=== PATIENT | male | born 1935 | race Caucasian/White ===

== ENCOUNTER → 2017-12-11 15:18 | Outpatient (CLI) | payer MEDICARE, OTHER, SELFPAY ==
[2017-12-11 16:57] LABS: AST(SGOT) 14 U/L (15-37); Alanine Aminotransfer ALT/SGPT 17 U/L (16-61); Albumin, Serum 3.9 g/dL (3.2-5.0); Alkaline Phosphatase 68 U/L (45-117); Bilirubin, Direct 0.13 mg/dL (0.00-0.30); Cholesterol 187 mg/dL (200); Globulin 3.4 g/dL (2.2-4.2); High Density Lipoprotein 36 mg/dL; Protein, Total 7.3 g/dL (6.4-8.2); Triglycerides 73 mg/dL; Very Low Density Lipoprotein 15 mg/dL (5-40)
== END ==
PROVIDERS: Family Provider Family Medicine; PCP Family Medicine; Visit Provider Physician Assistant Medical
DX: I10 Essential (primary) hypertension (principal); E78.5 Hyperlipidemia, unspecified; I25.10 Atherosclerotic heart disease of native coronary artery without angina pectoris
CPT/HCPCS: 36415; 80061; 80076

== ENCOUNTER → 2018-01-07 16:21 | Outpatient (CLI) | payer MEDICARE, OTHER, SELFPAY ==
--- NOTE | 2018-01-07 | LES_PTH ---
PATIENT: ELKIN HOUSE LOC: [facility] U#:[id number] AGE/SX: 89/M ROOM: RE01/07/[address]: Dr. Andre Mckeon MD : 1935 BED: DIS: SPEC #: [id number] RECD: 01/08/18 08:33 STATUS: SHANIQUE DEION #: [id number] KRAIG: 01/07/18 00:[address]: Andre Mckeon DEPT: SURGICAL PATHOLOGY RECD BY: Tomas Toussaint ENTERED: 01/08/18 08:33 SP TYPE: Lesion OTHR DR: Dr. Lui Sellers MD Tissues: Skin of forearm, NOS Procedures: Surgery Specimen Level IV HEADER OPERATION: Excision skin lesion left forearm PRE-OP DIAGNOSIS: Neoplasm of uncertain behavior of skin of forearm TISSUE SUBMITTED: Skin lesion left forearm MICROSCOPIC DIAGNOSIS Skin lesion left forearm, excision: Squamous cell carcinoma in situ. Detached fragment of superficial skin with ulceration and associated acute inflammation. See comment. SJ:dinh 01/12/18 COMMENT The margins cannot be evaluated definitely due to the fragmented nature of the specimen, however, grossly indentified piece as skin ellipse, inked resection margins are free of squamous carcinoma in situ. Clinical correlation and appropriate follow up are necessary. Case has been reviewed in consultation with Dr. Galloway who concurs with the above diagnosis. IDC:AM MICROSCOPIC DESCRIPTION Slides are reviewed. GROSS DESCRIPTION Received in fixative is one container labeled with the patient's name and designated left forearm. The specimen consists of an ellipse of light patterson excised skin measuring 1.5 x 1 x 0.5 cm. Also present free in the container is an irregular fragment of patterson tissue measuring 1 x 0.7 x 0.1 cm. This free flowing fragment may represent part of dislodged superficial skin. The skin fragment is inked, serially sectioned and totally submitted along with the presumed disarticulated superficial skin fragment in one cassette. / AM:dinh 01/08/18 TC:0 CPT: 21043
== END ==
PROVIDERS: Family Provider Family Medicine; PCP Family Medicine; Visit Provider Surgery
DX: D04.62 Carcinoma in situ of skin of left upper limb, including shoulder (principal)
CPT/HCPCS: 88305

== ENCOUNTER → 2018-02-18 09:42 | Outpatient (CLI) | payer MEDICARE, OTHER, SELFPAY ==
--- NOTE | 2018-02-18 09:44 | RAD_ITS ---
PROCEDURE: Air-contrast upper GI series. REASON FOR EXAM: Male, 83 years old. 10 pound weight loss in last 3 weeks. Difficulty eating food without washing food down. Patient complains of pain near sternum after eating. TECHNIQUE: After the administration of gas producing crystals, water and barium solution orally, multiple images of the opacified gastrointestinal tract were obtained under fluoroscopic guidance. FLUOROSCOPY TIME (if supplied): (1:07) minutes/seconds COMPARISON: None available. FINDINGS: After the administration of gas producing crystals, water and barium solution orally, multiple images of the opacified gastrointestinal tract were obtained under fluoroscopic guidance in the upright and prone DAY positions. Examination of the esophagus is abnormal with moderate thoracic upper and mid esophageal dilatation seen. Fairly severe dilatation distal esophagus is noted with irregular margins near the GE junction showing numerous filling defects, cannot exclude retained foodstuff and/or masses concerning for neoplasm with more distal esophageal GE junction narrowing noted. One of the filling defects is oval and is approximately 0.9 x 0.5 cm with image RF #1-7. Marked narrowing is seen of the distal esophagus at the GE junction with prone DAY imaging with small sliding-type hiatal hernia associated. Severe esophageal dysmotility is noted with tertiary waves suggested with delayed after imaging. Later delayed imaging shows retained barium within the thoracic upper and mid esophagus with lobulated appearing smooth right lateral margin adjacent. Delayed images also show filling defect within the distal esophagus with irregular margins concerning for neoplasm. Examination the stomach suggests thickened rugae although evaluation is difficult as stomach is not completely distended. Sternal wires and cardiac stents are seen. Severe aortic knob calcification. IMPRESSION: Abnormal esophagus as described with distal esophageal high grade obstruction with numerous intraluminal filling defects concerning for neoplasm and/or retained foodstuff. Distal esophageal narrowing with likely stricture noted near the GE junction, cannot exclude extrinsic constricting annular lesion. Recommend CT chest and abdomen with IV contrast without GI contrast for further evaluation or PET/CT scan as clinically indicated.. No aspiration identified during study. No significant GE reflux noted. Thickened gastric rugae suggested, may represent gastritis or other etiology. Clinical correlation recommended. Small sliding-type hiatal hernia noted. Sternal wires and cardiac stents. Severe aortic knob calcifications of arteriosclerosis. Results communicated via telephone from Dr. Cee to the Attending Physician's nurse Tonja 02/18/2018 at approximately 1232 hours. Electronically Signed: Kristopher Cee, at 12:44 EDT Tel , Service support , RAD/Esophagus Only
== END ==
PROVIDERS: Family Provider Family Medicine; PCP Family Medicine; Referring Provider Otolaryngology; Visit Provider Otolaryngology
DX: R13.10 Dysphagia, unspecified (principal)
CPT/HCPCS: 74220

== ENCOUNTER 2018-02-19 06:27 | Day surgery (SDC) | payer MEDICARE, OTHER, SELFPAY ==
--- NOTE | 2018-02-19 | IMM_PTH ---
PATIENT: ELKIN HOUSE LOC: [place] U#:[id number] AGE/SX: 83/M ROOM: RE02/19/[address]: Dr. Andre Mckeon MD : 1935 BED: DIS: 02/19/2018 SPEC #: [id number] RECD: 03/05/18 10:39 STATUS: SHANIQUE REQ #: [id number] KRAIG: 02/19/18 00:[address]: Kiera Hicks DEPT: IMMUNOHISTOCHEMISTRY RECD BY: Vanessa Soriano ENTERED: 03/05/18 10:40 SP TYPE: IMMUNO OTHR DR: MD Dr. Lui Thakkar MD Tissues: Esophagus, NOS Procedures: HER-2-DIRK (initial) Comments: @ Ordering doctor for HER2 edited from to @ by RGOOD at 03/05/18 1055 @ Submitting doctor edited from to @ by RGOOD at 03/05/18 1053 PHYSICIAN & [place] [phone] SPECIMEN INFORMATION: Tissue Source: Esophageal mass, biopsy Clinical Info: Esophageal mass Specimen Number: [id number] CPT code: 00773 METHODOLOGY: Deparaffinized sections of prefer/formalin-fixed tissue or PAP/DQ stained slides are incubated with monoclonal/polyclonal antibodies/oligonucleotide probes. Localization is made via biotin free immunoperoxidase method. Appropriate controls are performed and reacted as expected. Results on target cell population are indicated in the following table: RESULTS: ANTIBODY / CLONE RESULT Her-2neu (CB11) 0 (negative) The test for HER 2 is performed on formalin-fixed paraffin embedded tissue using the CB11 mouse monoclonal antibody ([employer]). A 3+ staining pattern is interpreted as positive and is defined as a strong membranous staining involving the entire cell membrane in over 30% of invasive tumor cells. A similar weak staining pattern (2+) involving 10% of the tumor cells is interpreted as equivocal. HER 2 follow-up testing by FISH is recommended for all equivocal results. Reference: [place] Society of Clinical Oncology and the College of [employer] Pathology (J. Clin. Oncol. 23: 118-145, 2007). Fixative Used: Formalin; Duration of Fixation: __ Hrs; Sample Adequate: Yes These tests were developed and their performance characteristics determined by [facility]. They may not have been cleared or approved by the U.S. Food and Drug Administration. The FDA has determined that such clearance or approval is not necessary. INTERPRETATION: Esophageal mass, biopsy: Invasive adenocarcinoma. SJ:dinh 03/08/18
--- NOTE | 2018-02-19 | EGD_PTH ---
PATIENT: ELKIN HOUSE LOC: EN U#:[id number] AGE/SX: 83/M ROOM: RE02/19/[address]: Dr. Andre Mckeon MD : 1935 BED: DIS: 02/19/2018 SPEC #: [id number] RECD: 02/19/18 12:13 STATUS: SHANIQUE DEION #: [id number] KRAIG: 02/19/18 00:[address]: Andre Mckeon DEPT: SURGICAL PATHOLOGY RECD BY: Tomas Toussaint ENTERED: 02/19/18 12:13 SP TYPE: EGD BIOPSY HARVEY DR: Dr. Lui Sellers MD Tissues: Esophageal mucous membrane Procedures: Surgery Specimen Level IV HEADER OPERATION: EGD ([facility] [place]) PRE-OP DIAGNOSIS: Esophageal mass TISSUE SUBMITTED: Esophageal mass biopsy MICROSCOPIC DIAGNOSIS Esophageal mass, biopsy: Invasive adenocarcinoma. See comment. ALISSON:dinh 02/22/18 COMMENT This case is discussed with Dr. Hicks on 02/22/18. Please notify the laboratory if immunohistochemistry for mismatch repair protein &/or Her-2neu is needed. Case has been reviewed in consultation with Dr. Galloway who concurs with the above diagnosis. IDC:AM MICROSCOPIC DESCRIPTION Slides are reviewed. GROSS DESCRIPTION Received in fixative is one container labeled with the patient's name and designated esophageal mass biopsy. The specimen consists of multiple irregular fragments of light patterson soft tissue that in aggregate measure 0.5 x 0.5 x 0.1 cm. The specimen is totally submitted in one cassette. / SJ:rg 02/19/18 TC:0 CPT: 85754
[2018-02-19 06:46] VITALS: BP 187/83; PULSE 57; RESP 16; TEMP 36.6; O2SAT 100; BMI 24.6
[2018-02-19 07:06] LABS: Bedside Glucose 127 mg/dL (70-110)
[2018-02-19 07:45] VITALS: BP 175/78; BP 187/83; PULSE 59; RESP 16; TEMP 36.5; O2SAT 100
--- NOTE | 2018-02-19 07:47 | OP.ENDO_ITS ---
Patient Name: Ad Mayfield Procedure Date: 02/19/2018 7:21 AM Date of : 1935 Age: 83 Procedure: Upper GI endoscopy Indications: Abnormal UGI series Providers: Andre Mckeon MD Medicines: See the Anesthesia note for documentation of the administered medications Complications: No immediate complications. Estimated blood loss: Minimal. Procedure: Pre-Anesthesia Assessment: - Prior to the procedure, a History and Physical was performed, and patient medications and allergies were reviewed. The patient's tolerance of previous anesthesia was also reviewed. The risks and benefits of the procedure and the sedation options and risks were discussed with the patient. All questions were answered, and informed consent was obtained. Prior Anticoagulants: The patient has taken Plavix (clopidogrel), last dose was day of procedure. ASA Grade Assessment: III - A patient with severe systemic disease. After reviewing the risks and benefits, the patient was deemed in satisfactory condition to undergo the procedure. After obtaining informed consent, the endoscope was passed under direct vision. Throughout the procedure, the patient's blood pressure, pulse, and oxygen saturations were monitored continuously. The gastroscope was introduced through the mouth, and advanced to the second part of duodenum. The upper GI endoscopy was accomplished without difficulty. The patient tolerated the procedure well. Scope In: 7:33:46 AM Scope Out: 7:38:41 AM Total Procedure Duration Time 0 hours 4 minutes 55 seconds Findings: A large, fungating mass with bleeding and stigmata of recent bleeding was found in the lower third of the esophagus, 35 cm from the incisors. The mass was partially obstructing and partially circumferential (involving one-third of the lumen circumference). Biopsies were taken with a cold forceps for histology. A small hiatal hernia was present. The ampulla and duodenal bulb were normal. No biopsies or other specimens were collected for this exam. Impression: - Partially obstructing, malignant esophageal tumor was found in the lower third of the esophagus. Biopsied. - Small hiatal hernia. - Normal ampulla and duodenal bulb. No specimens collected. Recommendation: - Discharge patient to home. - Full liquid diet indefinitely. - Continue present medications. - Await pathology results. - Repeat upper endoscopy (date not yet determined) for surveillance based on pathology results. - Return to my office in 1 week. Procedure Code(s): --- Professional --- 88453, Esophagogastroduodenoscopy, flexible, transoral; with biopsy, single or multiple Diagnosis Code(s): --- Professional --- C15.5, Malignant neoplasm of lower third of esophagus K44.9, Diaphragmatic hernia without obstruction or gangrene R93.3, Abnormal findings on diagnostic imaging of other parts of digestive tract CPT copyright 2017 [employer]. All rights reserved. The codes documented in this report are preliminary and upon medical record coder review may be revised to meet current compliance requirements. MD Andre Klein MD 02/19/2018 7:46:26 AM This report has been signed electronically. Number of Addenda: 0 Note Initiated On: 02/19/2018 7:21 AM
[2018-02-19 07:50] VITALS: BP 182/86; BP 187/83; PULSE 59; RESP 18; O2SAT 96
[2018-02-19 07:55] VITALS: BP 187/83; BP 190/99; PULSE 58; RESP 18; O2SAT 93
[2018-02-19 08:00] VITALS: BP 161/93; BP 187/83; PULSE 60; RESP 16; TEMP 36.3; O2SAT 100
[2018-02-19 08:25] VITALS: BP 187/83
== END 2018-02-19 08:34 | disposition home or self-care (01) ==
LOC: EN 06:28 → AC 06:40
PROVIDERS: Family Provider Family Medicine; PCP Family Medicine; Referring Provider Surgery; Visit Provider Surgery
PROC: 0DJ08ZZ Inspection of Upper Intestinal Tract, Via Natural or Artificial Opening Endoscopic (ICD-10-PCS; CPT 43235; principal; 2018-02-19 07:25)
DX: C15.5 Malignant neoplasm of lower third of esophagus (principal); K44.9 Diaphragmatic hernia without obstruction or gangrene; R93.3 Abnormal findings on diagnostic imaging of other parts of digestive tract; I25.10 Atherosclerotic heart disease of native coronary artery without angina pectoris; I10 Essential (primary) hypertension; E11.9 Type 2 diabetes mellitus without complications; E78.5 Hyperlipidemia, unspecified; I25.2 Old myocardial infarction
CPT/HCPCS: 43239; 82962; 88305; 88342; J7120

== ENCOUNTER 2018-03-09 08:36 | Outpatient (RCR) | payer MEDICARE, OTHER, SELFPAY ==
[2018-02-25 13:08] VITALS: BMI 24.1
== END 2018-03-10 23:59 ==
LOC: NS 08:36
PROVIDERS: Family Provider Family Medicine; PCP Family Medicine; Referring Provider Internal Medicine Hematology & Oncology; Visit Provider Internal Medicine Hematology & Oncology
DX: C15.9 Malignant neoplasm of esophagus, unspecified (principal); R63.4 Abnormal weight loss; Z71.3 Dietary counseling and surveillance
CPT/HCPCS: 97802

== ENCOUNTER → 2018-03-10 08:48 | Outpatient (CLI) | payer MEDICARE, OTHER, SELFPAY ==
[2018-02-25 13:08] VITALS: BMI 24.1
[2018-03-10] VITALS (10 sets, daily range): BP systolic 138–170; BP diastolic 55–82; PULSE 66–73; RESP 12–18; TEMP 36.8; O2SAT 94–99; BMI 22.9
--- NOTE | 2018-03-10 | ASPIGT_PTH ---
PATIENT: ELKIN HOUSE LOC: [place] U#:[id number] AGE/SX: 89/M ROOM: RE03/10/[address]: Dr. Kiera Hicks MD : 1935 BED: DIS: SPEC #: [id number] RECD: 03/10/18 11:42 STATUS: SHANIQUE RENilam #: [id number] KRIAG: 03/10/18 00:[address]: Kiera Hicks DEPT: SURGICAL PATHOLOGY RECD BY: Alexander Cabral ENTERED: 03/10/18 11:43 SP TYPE: ASP RAD OTHR DR: Dr. Lui Sellers MD Tissues: Right lung, NOS Procedures: FNA Specimen Adequacy Special Stain Group II Surgery Specimen Level IV Diff Quik Stain (control) Imprint (control) Cytology Other HEADER OPERATION: CT guided lung biopsy PRE-OP DIAGNOSIS: Right lung lesion TISSUE SUBMITTED: Right lung lesion, CT guided core biopsy MICROSCOPIC DIAGNOSIS Right lung lesion, CT-guided needle core biopsy: Benign lung parenchyma. Focal organizing hemorrhage. No evidence of malignancy. AM:dinh 03/11/18 COMMENT The specimen is evaluated at the time of CT by Dr. Rutledge. Immediate Evaluation = Negative for malignant cells. Reference is made to the patient's esophageal mass biopsy from 02/19/18 ([id number]) in which invasive adenocarcinoma was identified. Case has been reviewed in consultation with Dr. Rutledge who concurs with the above diagnosis. IDC:ALISSON MICROSCOPIC DESCRIPTION Slides are reviewed. GROSS DESCRIPTION Received in fixative is one container labeled with the patient's name and designated right lung lesion, CT-guided core biopsy. The specimen consists of multiple elongated fragments of patterson soft tissue that in aggregate measure 1 x <0.1 x <0.1 cm. The specimen is totally submitted in one cassette. Two touch imprints are prepared at the time of core biopsy. / ALISSON:dinh 03/10/18 TC:5 CPT: 11423, 22484, 93350
--- NOTE | 2018-03-10 | ASPIGT_PTH ---
PATIENT: ELKIN HOUSE LOC: [place] U#:[id number] AGE/SX: 89/M ROOM: RE03/10/[address]: Dr. Kiera Hicks MD : 1935 BED: DIS: SPEC #: [id number] RECD: 03/10/18 11:42 STATUS: SHANIQUE RENilam #: [id number] KRAIG: 03/10/18 00:[address]: Kiera Hicks DEPT: SURGICAL PATHOLOGY RECD BY: Alexander Cabral ENTERED: 03/10/18 11:43 SP TYPE: ASP RAD OTHR DR: Dr. Lui Sellers MD Tissues: Right lung, NOS Procedures: FNA Specimen Adequacy Special Stain Group II Surgery Specimen Level IV Diff Quik Stain (control) Imprint (control) Cytology Other HEADER OPERATION: CT guided lung biopsy PRE-OP DIAGNOSIS: Right lung lesion TISSUE SUBMITTED: Right lung lesion, CT guided core biopsy MICROSCOPIC DIAGNOSIS Right lung lesion, CT-guided needle core biopsy: Benign breast parenchyma. Focal organizing hemorrhage. No evidence of malignancy. AM:dinh 03/11/18 COMMENT The specimen is evaluated at the time of CT by Dr. Rutledge. Immediate Evaluation = Negative for malignant cells. Reference is made to the patient's esophageal mass biopsy from 02/19/18 ([id number]) in which invasive adenocarcinoma was identified. Case has been reviewed in consultation with Dr. Rutledge who concurs with the above diagnosis. IDC:ALISSON MICROSCOPIC DESCRIPTION Slides are reviewed. GROSS DESCRIPTION Received in fixative is one container labeled with the patient's name and designated right lung lesion, CT-guided core biopsy. The specimen consists of multiple elongated fragments of patterson soft tissue that in aggregate measure 1 x <0.1 x <0.1 cm. The specimen is totally submitted in one cassette. Two touch imprints are prepared at the time of core biopsy. / ALISSON:dinh 03/10/18 TC:5 CPT: 54479, 04854, 47647
--- NOTE | 2018-03-10 08:50 | CT_ITS ---
PROCEDURE: CT GUIDED CORE NEEDLE BIOPSY OF A right middle lobe LUNG LESION INDICATION: Male, 83 years old. Ill-defined densities in the right middle lobe. Positive PET scan. PHYSICIAN: Dr. Tong CONSENT: Written informed consent was obtained having explained the risks, benefits and alternatives in detail with the patient who accepted the risks and agreed to proceed. Laboratory review and clinical assessment was performed. CONSCIOUS SEDATION PROTOCOL: The Drugs used were: 2 mg Versed, IV., and 50 mcg Fentanyl, IV. The sedation time was: 23 minutes. Conscious sedation was started at 10:00 AM and terminated at 10:23 AM. The conscious sedation protocol was independently monitored. RADIATION DOSAGE (If Supplied By Facility): CTDIvol = ( 19.7 ) mGy, DLP = ( 1282.79 ) mGycm Individualized dose optimization techniques were used for this CT. TECHNIQUE: The patient was placed in the left side down decubitus position. A noncontrast CT was performed to localize the lesion in the right middle lobe . The skin surface was prepped and draped in a sterile fashion. 1% lidocaine was used for local anesthesia. Using CT guidance, a 20-gauge coaxial biopsy device was advanced to the periphery of the lesion. A total of 4 core specimens were obtained. The specimens were placed in a formalin solution. A post procedure CT demonstrated no adverse sequelae or pneumothorax. The patient tolerated the procedure well without adverse event. A negative biopsy does not exclude malignancy. Further imaging or clinical followup based on patient condition and degree of clinical suspicion for malignancy. Suggest rebiopsy, if biopsy results do not match with clinical scenario. CT/Biopsy/Inj or Needle Placement IMPRESSION: 1. CT directed core needle biopsy of the right middle lobe using CT image guidance with image documentation as described. Pathology results are pending. 2. Conscious Sedation protocol utilized with independent monitoring. Electronically Signed: Juan Carlos Tong MD at 12:28 EDT Tel [phone], Service support ,
[2018-03-10] MEDS: fentaNYL 100 MCG/2 ML Ampul IV (09:59)
[2018-03-10] MEDS: Midazolam 2 MG/2 ML Syringe IV (10:00)
--- NOTE | 2018-03-10 10:35 | RAD_ITS ---
STUDY: X-RAY CHEST REASON FOR EXAM: Male, 83 years old. Status post right lung biopsy. TECHNIQUE: AP inspiration and expiration views COMPARISON: Comparison is made with prior examination dated July 07, 2014. FINDINGS: This is an immediate post right lung biopsy radiograph. There is an approximately 10% right pneumothorax. The patient is asymptomatic at this time. A repeat examination is scheduled in 2 hours. RAD/Chest Insp/Exp 2 View IMPRESSION: Approximately 10% right pneumothorax following a right lung biopsy. Electronically Signed: Juan Carlos Tong MD at 10:12 EDT Tel [phone], Service support ,
--- NOTE | 2018-03-10 12:30 | RAD_ITS ---
STUDY: X-RAY CHEST REASON FOR EXAM: Male, 83 years old. Status post right lung biopsy. TECHNIQUE: PA inspiration expiration views. COMPARISON: Comparison is made with prior examination done earlier in the day. FINDINGS: This is a 2 hour delayed image following a right lung biopsy. Stable right pneumothorax. The patient is asymptomatic. The patient will be followed with appropriate instructions. RAD/Chest Insp/Exp 2 View IMPRESSION: Stable right-sided pneumothorax on the 2 hour delayed post right lung biopsy radiograph. Electronically Signed: Juan Carlos Tong MD at 12:30 EDT Tel [phone], Service support ,
== END ==
PROVIDERS: Family Provider Family Medicine; PCP Family Medicine; Referring Provider Internal Medicine Hematology & Oncology; Visit Provider Internal Medicine Hematology & Oncology
DX: R91.8 Other nonspecific abnormal finding of lung field (principal); C15.9 Malignant neoplasm of esophagus, unspecified
CPT/HCPCS: 32405; 71046; 77012; 88161; 88172; 88305; 88307; 88313; 99156; 99157; J7040; A4216

== ENCOUNTER 2018-03-11 09:15 | Day surgery (SDC) | payer MEDICARE, OTHER, SELFPAY ==
[2018-02-25 13:08] VITALS: BMI 24.1
[2018-03-11] VITALS (7 sets, daily range): BP systolic 130–167; BP diastolic 74–83; PULSE 67–77; RESP 13–18; TEMP 36.3–36.6; O2SAT 94–100; BMI 23.6
--- NOTE | 2018-03-11 09:51 | OP.PCM_ITS ---
Problem List (1) Esophagus cancer Status: Acute Qualifiers: Malignant neoplasm of esophagus location: lower third Report of Operation Date of Procedure: 03/11/18 Pre-Operative Diagnosis: Z45.2 adjustment and management vascular fitting Post-Operative Diagnosis: Same Surgery/Procedure Performed:: 1. Right IJ PowerPort placement Type of Anesthesia:: MAC and Topical Anesth Anesthesiologist: Ozzie Gabriel Estimated Blood Loss (mL): < 25 cc Description of Procedure: Patient was brought into the operating room placed in the supine position. Patient was placed in the headdown the right neck was ultrasound properly marked then sterilely prepped and draped in the usual fashion. Local was injected into the neck Seldinger's technique was used to gain access into the right internal jugular vein on the first stick. Guidewire was placed through the needle the needle was removed and fluoroscopy was used to confirm proper placement of the wire. Local was injected onto the chest. An incision was made and electrocautery was used to create a pocket for the port. Incision was made in the neck on the guidewire dilator and sheath were placed over the guidewire dilator and guidewire removed. Single lumen catheter was placed through the sheath. Fluoroscopy was used to confirm proper length to the catheter. The catheter then was tunneled over the collarbone down into the pocket created on the chest. It was cut to length. A locking hub was placed on it. A port was placed on it and the tube was secured with a locking hub. It flushed and irrigated well and was flushed with 5 cc of hep flush. It was sutured into the pocket created with 2 sutures of 2-0 Prolene. Skin incisions were brought together with deep dermal stitches of 3-0 Vicryl and running 4-0 Monocryl. Dermabond was applied sterile dressings were applied and the patient tolerated the procedure well. Patient had undergone a previous right lung biopsy and my postoperative chest x- ray did show a small pneumothorax which I know was not related to the placement of the port. He was breathing appropriately and I felt that he was stable to go home. The catheter was in good placement. - Admit VTE Documentation VTE Present on Admission: No VTE Mechan Device Prophylaxis: SCD's VTE Pharm Prophylaxis ordered?: No Reason prophylaxis not ordered:: Treatment Not Indicated
--- NOTE | 2018-03-11 09:54 | DCINST_ITS ---
Discharge Diet: No Restrictions - Pain medication may cause nausea. You should typically eat light foods as you take your pain medication. Discharge Activity: May Shower - with the bandage in place 1-2 days after surgery. DO NOT SHOWER WHEN YOUR PORT IS ACCESSED. Additional Activity Instructions:: May not drive, work with heavy equipment, or sign legal documents for [address] if you are no longer taking narcotic pain medications. You may drive when you are no longer taking pain medications. Additional Dressing/Incision Instructions:: Leave the bandage on for 2-3 days. When you remove the bandage, leave the steri-strips intact until they fall off. Allergies/Adverse Reactions: Allergies simvastatin Allergy (Severe, Verified 03/08/18 08:55) Unknown muscle weakness atorvastatin [From Lipitor] Allergy (Intermediate, Verified 03/08/18 08:55) Unknown gabapentin [From Neurontin] Allergy (Verified 03/08/18 08:55) Other affected memory Medications to take at Discharge Aspirin [Aspirin, Baby] 81 mg PO DAILY@0800 07/07/14 Atenolol [Tenormin (beta josefina)] 50 mg PO DAILY 07/07/14 clopidogrel 75 mg tablet 75 mg PO DAILY #90 tab 04/21/17 metformin ER 500 mg tablet,extended release 24 hr 1,000 mg PO DAILY tab 12/10/17 nitroglycerin 0.4 mg sublingual tablet 0.4 mg SUBLINGUAL Q5-15M PRN 12/10/17 temazepam 15 mg capsule 15 mg PO QHS PRN 12/10/17 Enalapril Maleate [Vasotec] 20 mg PO DAILY 02/18/18 Melatonin 10 mg PO QHS PRN 02/22/18 Dulaglutide [Trulicity] 0.75 mg SQ SA 03/04/18 Ranitidine [Zantac] 150 mg PO DAILY PRN 03/08/18 Oxycodone HCl/Acetaminophen [Percocet 5/325] 1 - 2 tab PO Q4H PRN PRN 5 Days #30 tab 03/11/18 The following prescriptions were given: Oxycodone HCl/Acetaminophen [Percocet 5/325] 1 - 2 tab PO Q4H PRN PRN 5 Days #30 tab PRN Reason: Pain Primary Care Physician: Lui Sellers MD [Primary Care Provider] - Test Results: Test results from this visit will be discussed in further detail at your follow- up appointment, if applicable. Please Follow Up With: Andre Mckeon MD - [phone] When: Please plan to follow up in 7 days in the office.
[2018-03-11 10:06] LABS: Bedside Glucose 178 mg/dL (70-110)
[2018-03-11] MEDS: Bupivacaine Mpf 0.5% 30 ML VIAL (10:17)
--- NOTE | 2018-03-11 10:44 | OP.ENDO_ITS ---
Patient Name: Ad Mayfield Procedure Date: 03/11/2018 9:58 AM Date of : 1935 Age: 83 Procedure: Upper GI endoscopy Indications: Malignant esophageal adenocarcinoma Providers: Andre Mckeon MD Referring MD: Andre Mckeon MD Medicines: See the Anesthesia note for documentation of the administered medications Patient Profile: This is an 83 year old male. Refer to note in patient chart for documentation of history and physical. He is status post EGD for biopsy within the past month. Complications: No immediate complications. Procedure: Pre-Anesthesia Assessment: - Prior to the procedure, a History and Physical was performed, and patient medications and allergies were reviewed. The patient's tolerance of previous anesthesia was also reviewed. The risks and benefits of the procedure and the sedation options and risks were discussed with the patient. All questions were answered, and informed consent was obtained. Prior Anticoagulants: The patient has taken aspirin, last dose was day of procedure. ASA Grade Assessment: III - A patient with severe systemic disease. After reviewing the risks and benefits, the patient was deemed in satisfactory condition to undergo the procedure. After obtaining informed consent, the endoscope was passed under direct vision. Throughout the procedure, the patient's blood pressure, pulse, and oxygen saturations were monitored continuously. The gastroscope was introduced through the mouth, and advanced to the duodenal bulb. The upper GI endoscopy was accomplished without difficulty. The patient tolerated the procedure well. Scope In: 10:27:34 AM Scope Out: 10:34:02 AM Total Procedure Duration Time 0 hours 6 minutes 28 seconds Findings: The patient was placed in the supine position for PEG placement. The stomach was insufflated to appose gastric and abdominal rios. A site was located in the antrum of the stomach with excellent transillumination for placement. The abdominal wall was marked and prepped in a sterile manner. The area was anesthetized with 5 mL of 1% lidocaine. The trocar needle was introduced through the abdominal wall and into the stomach under direct endoscopic view. A snare was introduced through the endoscope and opened in the gastric lumen. The guide wire was passed through the trocar and into the open snare. The snare was closed around the guide wire. The endoscope and snare were removed, pulling the wire out through the mouth. A skin incision was made at the site of needle insertion. The 14 Fr Bard gastrostomy tube was lubricated. The G-tube was tied to the guide wire and pulled through the mouth and into the stomach. The trocar needle was removed, and the gastrostomy tube was pulled out from the stomach through the skin. The external bumper was attached to the gastrostomy tube, and the tube was cut to remove the guide wire. The final position of the gastrostomy tube was confirmed by relook endoscopy, and skin marking noted to be 2.5 cm at the external bumper. The final tension and compression of the abdominal wall by the PEG tube and external bumper were checked and revealed that the bumper was loose and lightly touching the skin. The feeding tube was capped, and the tube site cleaned and dressed. A large, fungating mass with no stigmata of recent bleeding was found in the lower third of the esophagus. The mass was partially obstructing. The examined duodenum was normal. Impression: - Partially obstructing esophageal tumor was found in the lower third of the esophagus. - Normal examined duodenum. - A PEG placement was successfully completed. - No specimens collected. Recommendation: - Discharge patient to home. - Resume previous diet. - Continue present medications. - Repeat upper endoscopy in 3 months to assess disease activity. - Return to my office in 1 week. Procedure Code(s): --- Professional --- 95029, Esophagogastroduodenoscopy, flexible, transoral; with directed placement of percutaneous gastrostomy tube Diagnosis Code(s): --- Professional --- D49.0, Neoplasm of unspecified behavior of digestive system C15.9, Malignant neoplasm of esophagus, unspecified CPT copyright 2017 [employer]. All rights reserved. The codes documented in this report are preliminary and upon material requirements worker review may be revised to meet current compliance requirements. MD Andre Klein MD 03/11/2018 10:43:52 AM This report has been signed electronically. Number of Addenda: 0 Note Initiated On: 03/11/2018 9:58 AM
--- NOTE | 2018-03-11 11:52 | RAD_ITS ---
STUDY: X-RAY CHEST REASON FOR EXAM: Male, 83 years old. Post port placement TECHNIQUE: Single AP portable view of the chest. COMPARISON: Chest x-ray yesterday FINDINGS: Placement of right chest wall Mediport with tip in the mid SVC however, there is a small right apical pneumothorax. About 15-20 % of total lung volume. Left lung is clear. Small amount of right midlung airspace disease, likely atelectasis. Remainder is unchanged RAD/CXR for Line Placement IMPRESSION: Recent placement of right chest wall Mediport with tip in the mid SVC. Right apical pneumothorax, roughly 15-20% of total lung volume N.B. : The above information has been verbally conveyed by Morgan Srivastava DO to Ashia Rosas RN, on 03/11/2018 12:19:53 (ET). Electronically Signed: Morgan Srivastava DO at 12:20 EDT Tel , Service support ,
== END 2018-03-11 13:31 | disposition home or self-care (01) ==
LOC: EN 09:16 → AC 09:16
PROVIDERS: Family Provider Family Medicine; PCP Family Medicine; Referring Provider Surgery; Visit Provider Surgery
PROC: (CPT 36561; principal; 2018-03-11 11:00)
PROC: 0DJ08ZZ Inspection of Upper Intestinal Tract, Via Natural or Artificial Opening Endoscopic (ICD-10-PCS; CPT 43235; principal; 2018-03-11 11:55)
DX: Z45.2 Encounter for adjustment and management of vascular access device (principal); C15.5 Malignant neoplasm of lower third of esophagus; I25.10 Atherosclerotic heart disease of native coronary artery without angina pectoris; E11.9 Type 2 diabetes mellitus without complications; I10 Essential (primary) hypertension; E78.5 Hyperlipidemia, unspecified; I25.2 Old myocardial infarction; Z95.1 Presence of aortocoronary bypass graft; K21.9 Gastro-esophageal reflux disease without esophagitis
CPT/HCPCS: 36561; 43246; 71045; 77001; 82962; J7120; C1788

== ENCOUNTER 2018-03-25 11:30 | Outpatient (RCR) | payer MEDICARE, OTHER, SELFPAY ==
[2018-02-25 13:08] VITALS: BMI 24.1
== END 2018-04-09 23:59 ==
LOC: NS 11:30
PROVIDERS: Family Provider Family Medicine; PCP Family Medicine; Referring Provider Internal Medicine Hematology & Oncology; Visit Provider Internal Medicine Hematology & Oncology
DX: R63.4 Abnormal weight loss (principal); Z71.3 Dietary counseling and surveillance
CPT/HCPCS: 97803

== ENCOUNTER 2018-04-01 15:34 | Emergency (ER) | payer MEDICARE, OTHER, SELFPAY ==
[2018-02-25 13:08] VITALS: BMI 24.1
[2018-03-31 13:45] VITALS: BMI 23.7
[2018-04-01 15:35] VITALS: BP 159/83; PULSE 91; RESP 17; TEMP 36.3; O2SAT 99; BMI 23.7
--- NOTE | 2018-04-01 15:53 | ED.VISSUMM ---
- ER Visit Summary Date of Service: 04/01/18 Chief Complaint: Abdominal distention, nausea, constipation no flatus History of Present Illness: The patient is a 83 M who was diagnosed with esophageal cancer and was deemed an operable. He was diagnosed in February 26. He reports a 9 pound weight loss since diagnosis. He states he has not had a bowel movement or passed gas for 4 days. He does report non-productive cough for several months. He denies orthopnea, PND or dyspnea on exertion. He reports decreased urine output with darker urine today. He does report thirsty, dry mouth and lightheadedness. He denies headache, visual, ocular auditory symptoms. He denies trouble with speech or swallowing. He is on pain medicine. He is on a laxative. He is on no bulking agent and diet is low in fiber. Review of systems is otherwise negative. Physical Examination: Vital signs noted. Blood pressure is elevated 150/83. He appears pale. Head is atraumatic normocephalic. Pupils are equal round reactive. Extraocular muscles are intact. Conjunctive are slightly pink. TMs are pearly white with landmarks noted. Nares patent with no drainage. Posterior pharynx without erythema or exudate. Uvula is midline. Tongue and mucosa are dry. There is no dysphonia or dysphasia. Trachea is midline. There is no stridor with auscultation of the neck. Heart is regular without murmur, gallop or rub. S1 and S2 are normal. Lungs are clear to auscultation with good movement of air bilaterally. Abdomen distended slightly tympanitic with abnormal bowel sounds. Feeding tube noted. Rectal exam remarkable for impaction. Skin appears pale. Neuro exam is nonfocal. Test Results: Three-view x-ray of the abdomen reveals no evidence of obstruction. The chest portion reveals port right subclavian. There is no evidence of infiltrate. Cardiac silhouette is normal. Median sternotomy wires noted. Hilum is normal. No abnormality of the osseous structures. The abdominal portion is no ossific gas pattern. A significant amount of stool in the pelvis. White count is 3.1 with 93 segs and an absolute neutrophil count greater than 2700. Blood sugar is elevated at 368. Is slightly elevated. Emergency Department Course and Treatment: With history of prior abdominal surgery no flatus or bowel movement for 4 days with a distended abdomen will obtain x-rays to determine if there is evidence of a partial small bowel obstruction versus mechanical obstruction secondary to fecal impaction. Because patient reports thirst and dry mouth with decreased urine output will obtain electrode panel and he will receive 1 L of normal saline wide open. Since he appears pale will obtain a CBC to assess H&H. Treatment Plan: Patient was digitally disimpacted by me. He received the liter of normal saline and will be discharged with appropriate instructions to prevent this from reoccurring. Disposition: Discharged home in stable improved condition Impression: 1. Mechanical obstruction secondary to fecal impaction 2. Hyperglycemia and type II diabetic, 368 3. Neutropenia and cancer patient 4. Mild dehydration This note was generated with [employer] dictation software. It may contain incorrect words, spelling, and punctuation that were not noted in review of the chart prior to signing ED Disposition - Plan for ED Patient: Disposition: Home or Assisted Living Chief Complaint: Constipation Instructions: ED Constipation Prescriptions: Dicyclomine HCl [Bentyl] 20 mg PO TIDAC #20 capsule Referrals: Lui Sellers MD [Primary Care Provider] - 1 Week if not improving Kiera Hicks MD [STAFF PHYSICIAN] - 10-14 Days if not better Additional Instructions: 1. You need to increase the fiber in your diet 2. Take Metamucil or MiraLAX 3 times a day for the next week, then twice a day thereafter. 3. You need to increase your fluid intake. 4. Your prescriptions were electronically transmitted to [facility] pharmacy
[2018-04-01] MEDS: 0.9% Normal Saline 1,000 ML 1000 ML IV (16:22)
[2018-04-01 16:24] LABS: Absolute Neutrophil Count 2.9 X10^3/uL (2.0-7.7); Basophil# 0.01 X10^3/uL; Basophil% 0.3 % (0-1); Eosinophil# 0.01 X10^3/uL; Eosinophils% 0.3 % (0-5); Hematocrit 35.9 % (40-54); Hemoglobin 12.2 g/dl (13.0-16.5); Lymphocyte % 3.2 % (19-41); Mean Corpuscular Hgb 30.3 pg (27.0-32.0); Mean Corpuscular Volume 89.1 fL (80-94); Mean Platelet Vol. 9.1 fl (6.2-12.0); Monocyte# 0.07 X10^3/uL; Monocyte% 2.3 % (0-10); Neutrophil # 2.89 X10^3/uL (2.7-7.7); Neutrophil % 93.6 % (47-70); Platelet Count 209 K/mm3 (150-450); RBC Distribution Width CV 13.7 % (11.6-14.6); RBC Distribution Width SD 42.5 fl (35.1-43.9); Red Blood Count 4.03 M/mm3 (4.6-6.2); White Blood Count 3.1 K/mm3 (4.4-11.0)
--- NOTE | 2018-04-01 16:25 | RAD_ITS ---
STUDY: X-RAY - ACUTE ABDOMINAL SERIES REASON FOR EXAM: Male, 83 years old. Abdominal discomfort with pain. Patient is being treated for esophageal cancer. TECHNIQUE: Single view of the chest. Supine, and erect view(s) of the abdomen were obtained. COMPARISON: Chest x-ray dated March 11, 2018 FINDINGS: A right internal jugular catheter stable. There is stable hyperexpansion with granulomatous calcification. There is moderate cardiomegaly with sternotomy wires unchanged. Normal mediastinum and marlin. Normal visualized pulmonary arteries. There is atherosclerotic calcification of the aortic arch with tortuosity. There is a non-specific bowel gas pattern with air seen to the level of the rectosigmoid. The soft tissue structures of the abdomen and pelvis are unremarkable. Normal visualized osseous structures. RAD/Acute Abdomen Inc Chest IMPRESSION: No acute pathology of the chest, abdomen or pelvis. Electronically Signed: Jim Espinoza MD at 16:48 EST , Service support ,
[2018-04-01 16:29] LABS: Differential Indicated SCAN CRITERIA MET; POSITIVE COUNT NO; POSITIVE DIFFERENTIAL YES; POSITIVE MORPHOLOGY NO
[2018-04-01 16:33] LABS: Anion Gap 6 (5-15); BUN 23 mg/dL (7-18); BUN/Creat Ratio 26.2 RATIO (10-20); Calcium,Total 8.5 mg/dL (8.5-10.1); Chloride 102 mmol/L (98-107); Creatinine, Serum 0.88 mg/dL (0.70-1.30); EST Glomerular Filtration Rate 88 mL/min (>60); Est Glom Filt Rate - Afr Amer 107 mL/min (>60); Glucose 368 mg/dL (74-106); Potassium 4.5 mmol/L (3.5-5.1); Sodium Level 134 mmol/L (136-145)
[2018-04-01 16:50] LABS: Differential Comment SCANNED
[2018-04-01] MEDS: Dicyclomine 10 MG Capsule 20 MG PO (17:08)
[2018-04-01 18:19] VITALS: BP 141/76; PULSE 80; RESP 16
[2018-04-05 10:57] LABS: Pathologist Review Reviewed
== END 2018-04-01 18:21 | disposition home or self-care (01) ==
PROVIDERS: Emergency Provider Emergency Medicine; Family Provider Family Medicine; PCP Family Medicine
DX: K56.41 Fecal impaction (principal); E11.65 Type 2 diabetes mellitus with hyperglycemia; D70.9 Neutropenia, unspecified; C15.9 Malignant neoplasm of esophagus, unspecified; E86.0 Dehydration; R05 Cough; I10 Essential (primary) hypertension; E78.00 Pure hypercholesterolemia, unspecified; I25.10 Atherosclerotic heart disease of native coronary artery without angina pectoris; Z87.891 Personal history of nicotine dependence
CPT/HCPCS: 36591; 74022; 80048; 85025; 96360; 96361; 99283; J7030; A4216

== ENCOUNTER 2018-04-02 12:19 | Emergency (ER) | payer MEDICARE, OTHER, SELFPAY ==
[2018-02-25 13:08] VITALS: BMI 24.1
[2018-04-02 11:04] VITALS: BMI 23.7
[2018-04-02 12:21] VITALS: BP 167/70; PULSE 96; PULSE 97; RESP 18; TEMP 36.8; O2SAT 96; O2SAT 97; BMI 23.1
--- NOTE | 2018-04-02 12:35 | CT_ITS ---
STUDY: CT ABDOMEN AND PELVIS WITHOUT CONTRAST REASON FOR EXAM: Male, 83 years old. History of esophageal carcinoma. Possible leakage of the PEG tube. Abdominal pain. RADIATION DOSAGE (If Supplied By Facility): CTDIvol = ( 7.84 ) mGy, DLP = ( 407.50 ) mGycm TECHNIQUE: Transaxial images were obtained from the dome of the diaphragm to the symphysis pubis without oral contrast, and without intravenous contrast. Sagittal and coronal images were reconstructed. Individualized dose optimization techniques were used for this CT. COMPARISON: None. FINDINGS: Patchy right lower lobe infiltrate superimposed on the scarring and bronchiectasis in the posterior medial segment of the right lower lung. Coronary artery calcification. Normal liver. There are multiple gallstones. Normal spleen. There is diffuse atrophy of the pancreas. Normal bilateral adrenal glands. Right perinephric stranding. There is a 5.7 cm x 4.4 cm lobulated nodular density with a small layer of calcifications along its dependent portion arising from the lateral aspect of the right kidney. This may represent a septated cyst with milk of calcium within it. Correlation with ultrasound is recommended for further evaluation. There is a 1.4 cm x 1.8 cm low density nodule in the lateral midportion of the right kidney. This most likely represents a small cyst. Mild degree of left perinephric stranding. There is a small hiatal hernia. A PEG tube is seen within the body of the stomach. Normal small intestine. There are multiple colonic diverticula consistent with diverticulosis. The appendix is visualized and appears normal. There is diffuse atherosclerotic calcification of the abdominal aorta and its major visceral branches, without a demonstrated aneurysm. Normal inferior vena cava. Normal retroperitoneum. Normal urinary bladder. There are prostatic calcifications. Normal abdominal wall. There are degenerative changes of the visualized lumbar spine. CT/Abdomen/Pelvis without Cont IMPRESSION: A PEG tube is seen within the body of the stomach. There is no evidence of a leakage at this time. Small hiatal hernia. Multiple gallstones. Densities in the right kidney most likely representing cysts. Correlation with ultrasound is recommended. Findings suggestive of scarring with bronchiectasis in the posterior medial segment of the right lower lobe. Electronically Signed: Juan Carlos Tong MD at 13:41 EST Tel [phone], Service support ,
[2018-04-02 13:14] LABS: Absolute Lymphocyte Count 0.07 X10^3/ul (0.83-4.51); Absolute Neutrophil Count 2.6 X10^3/uL (2.0-7.7); Basophil# 0.03 X10^3/uL; Basophil% 1.1 % (0-1); Hematocrit 32.1 % (40-54); Hemoglobin 10.7 g/dl (13.0-16.5); Lymphocyte # 0.07 X10^3/ul (4.0); Lymphocyte % 2.5 % (19-41); Mean Corp Hgb Conc 33.3 g/gl (32-36); Mean Corpuscular Hgb 29.6 pg (27.0-32.0); Mean Corpuscular Volume 88.9 fL (80-94); Mean Platelet Vol. 9.4 fl (6.2-12.0); Monocyte# 0.06 X10^3/uL; Monocyte% 2.1 % (0-10); Neutrophil # 2.62 X10^3/uL (2.7-7.7); Neutrophil % 93.2 % (47-70); Platelet Count 139 K/mm3 (150-450); RBC Distribution Width CV 13.6 % (11.6-14.6); RBC Distribution Width SD 43.6 fl (35.1-43.9); Red Blood Count 3.61 M/mm3 (4.6-6.2); White Blood Count 2.8 K/mm3 (4.4-11.0)
[2018-04-02 13:17] LABS: ALB/GLOB Ratio 0.9 RATIO (0.9-2.4); AST(SGOT) 13 U/L (15-37); Alanine Aminotransfer ALT/SGPT 17 U/L (16-61); Albumin, Serum 2.8 g/dL (3.2-5.0); Alkaline Phosphatase 54 U/L (45-117); Anion Gap 10 (5-15); BUN 16 mg/dL (7-18); BUN/Creat Ratio 26.1 RATIO (10-20); Calcium,Total 8.1 mg/dL (8.5-10.1); Chloride 103 mmol/L (98-107); Creatinine, Serum 0.61 mg/dL (0.70-1.30); EST Glomerular Filtration Rate 134 mL/min (>60); Est Glom Filt Rate - Afr Amer 162 mL/min (>60); Estimated Creatinine Clearance 65.05 ml/min; Globulin 3.1 g/dL (2.2-4.2); Glucose 240 mg/dL (74-106); Lipase 55 U/L (73-393); Potassium 4.2 mmol/L (3.5-5.1); Protein, Total 5.9 g/dL (6.4-8.2); Sodium Level 136 mmol/L (136-145)
[2018-04-02 13:32] LABS: POSITIVE COUNT NO; POSITIVE MORPHOLOGY NO
[2018-04-02 13:33] LABS: Differential Indicated SCAN CRITERIA MET
[2018-04-02 13:37] LABS: POSITIVE DIFFERENTIAL YES
[2018-04-02 13:39] LABS: Platelet Estimate SLT DEC (ADEQ); Red Cell Morphology NORM C+C NORMAL (NORM C&C)
--- NOTE | 2018-04-02 15:17 | ED.VISSUMM ---
- ER Visit Summary Date of Service: 04/02/18 Chief Complaint: Abdominal pain History of Present Illness: The patient is a 83 M who presents with abdominal pain around his G-tube site for the past for 5 days. Patient states he has been having some drainage around the PEG tube site. Patient denies any nausea or vomiting. Patient denies any diarrhea. Patient states he has the PEG tube for his cancer treatments. Patient denies any fevers or chills. Patient states he is able to take some liquids by mouth. Physical Examination: Vital signs are stable. Patient is afebrile. Patient is in no acute distress. Oral mucosa is pink and moist. Neck is supple. Trachea is midline. Heart was regular rate and rhythm. Lungs are clear and equal bilaterally. Abdomen is soft. Bowel sounds are normal. There is some mild tenderness around the G-tube site. There is some mild erythema and purulent drainage noted. There is no rebound or guarding noted. Cranial nerves II through XII are intact. There are no focal motor or sensory deficits noted. The remaining physical exam is within normal limits. Test Results: CBC showed a white blood cell count of 2.8. Hemoglobin was 10.7. Platelets 139. Glucose was 240. CT scan of the abdomen and pelvis was obtained. There are no masses or deep abscess. Emergency Department Course and Treatment: Patient was given a prescription for Keflex. Patient was instructed to follow-up with his primary care physician in 5-7 days. Patient understood and was agreeable with the plan. All questions were answered. Disposition: Discharge home Impression: Abdominal cellulitis This note was generated with [employer] dictation software. It may contain incorrect words, spelling, and punctuation that were not noted in review of the chart prior to signing ED Disposition - Plan for ED Patient: Disposition: Home or Assisted Living Chief Complaint: Abd Pain Diagnosis: Abdominal wall cellulitis Instructions: ED Infec Skin Cellulitis Prescriptions: Cephalexin Suspension [Keflex Suspension] 500 mg PO [id number] #400 ml Referrals: Lui Sellers MD [Primary Care Provider] -
--- NOTE | 2018-04-02 15:20 | ED.DCSUM_ITS ---
- ER Visit Summary Date of Service: 04/02/18 Chief Complaint: Abdominal pain History of Present Illness: The patient is a 83 M who presents with abdominal pain around his G-tube site for the past for 5 days. Patient states he has been having some drainage around the PEG tube site. Patient denies any nausea or vomiting. Patient denies any diarrhea. Patient states he has the PEG tube for his cancer treatments. Patient denies any fevers or chills. Patient states he is able to take some liquids by mouth. Physical Examination: Vital signs are stable. Patient is afebrile. Patient is in no acute distress. Oral mucosa is pink and moist. Neck is supple. Trachea is midline. Heart was regular rate and rhythm. Lungs are clear and equal bilaterally. Abdomen is soft. Bowel sounds are normal. There is some mild tenderness around the G-tube site. There is some mild erythema and purulent drainage noted. There is no rebound or guarding noted. Cranial nerves II through XII are intact. There are no focal motor or sensory deficits noted. The remaining physical exam is within normal limits. Test Results: CBC showed a white blood cell count of 2.8. Hemoglobin was 10.7. Platelets 139. Glucose was 240. CT scan of the abdomen and pelvis was obta ined. There are no masses or deep abscess. Emergency Department Course and Treatment: Patient was given a prescription for Keflex. Patient was instructed to follow-up with his primary care physician in 5-7 days. Patient understood and was agreeable with the plan. All questions were answered. Disposition: Discharge home Impression: Abdominal cellulitis This note was generated with [employer] dictation software. It may contain incorrect words, spelling, and punctuation that were not noted in review of the chart prior to signing ED Disposition - Plan for ED Patient: Disposition: Home or Assisted Living Chief Complaint: Abd Pain Diagnosis: Abdominal wall cellulitis Instructions: ED Infec Skin Cellulitis Prescriptions: Cephalexin Suspension [Keflex Suspension] 500 mg PO [id number] #400 ml Referrals: Lui Sellers MD [Primary Care Provider] -
[2018-04-02 15:47] VITALS: PULSE 64; RESP 18; O2SAT 99
[2018-04-05 10:54] LABS: Pathologist Review Reviewed
== END 2018-04-02 15:48 | disposition home or self-care (01) ==
PROVIDERS: Emergency Provider Emergency Medicine; Family Provider Family Medicine; PCP Family Medicine
DX: L03.311 Cellulitis of abdominal wall (principal); K44.9 Diaphragmatic hernia without obstruction or gangrene; K80.20 Calculus of gallbladder without cholecystitis without obstruction; Z85.01 Personal history of malignant neoplasm of esophagus; Z93.1 Gastrostomy status; E11.9 Type 2 diabetes mellitus without complications; I25.10 Atherosclerotic heart disease of native coronary artery without angina pectoris; Z95.1 Presence of aortocoronary bypass graft
CPT/HCPCS: 36591; 74176; 80053; 83690; 85025; 87070; 87077; 87186; 87205; 99282; J7030; A4216

== ENCOUNTER 2018-04-03 07:14 | Emergency (ER) | payer MEDICARE, OTHER, SELFPAY ==
[2018-02-25 13:08] VITALS: BMI 24.1
[2018-04-02 12:21] VITALS: BMI 23.1
[2018-04-03 07:15] VITALS: BP 157/86; PULSE 94; RESP 18; TEMP 36.6; O2SAT 95; BMI 23.1
--- NOTE | 2018-04-03 08:04 | ED.DCSUM_ITS ---
- ER Visit Summary Date of Service: 04/03/18 Chief Complaint: Cough History of Present Illness: The patient is a 83 M who had a left sided bloody nose around 11 PM last night. This lasted several minutes and seemed to resolve with direct pressure. A few minutes after that, he coughed up some bright red blood and clots. This seemed to resolve after a coughing episode. This morning, he wiped his nose and noted some blood on the tissue. He denies any trauma or fevers. He thinks this might be related to taking Keflex. He was prescribed Keflex yesterday for a PEG site infection. The patient has a history of esophageal cancer and is on chemotherapy and radiation. He had a PEG tube placed about a month ago. He noted some redness around the site. He took 2 doses of Keflex and is concerned that the Keflex might be causing the bleeding. He never had this reaction to Keflex before, but rather he read the pharmacy paperwork and it said to return for any sign of bleeding. The patient does take aspirin and Plavix, he has a history of coronary disease. No other blood thinners. No trouble breathing. No chest pain. No known liver disease. Physical Examination: Afebrile and vital signs unremarkable. The patient is sitting upright and in no acute distress. He has some dried blood at his bilateral muscles, worse on the left side. His oropharynx is clear. The remainder of his HEENT exam is unremarkable. Neck unremarkable. Airway intact. Lungs clear. Heart regular. Abdomen soft and nontender. PEG tube shows mild surrounding erythema but no other abnormal findings. It is otherwise clean and intact. Skin otherwise normal. Test Results: We will check labs, coags and a chest x-ray. Emergency Department Course and Treatment: Patient was monitored while awaiting results. I have low suspicion that the Keflex is causing his bleeding. It seems that he had a nosebleed and this caused him to cough up some blood from his oropharynx. I have low suspicion for PE, cardiac pathology, or lung pathology. Will check labs and coags as they may be contributing. White count 1.8 and hemoglobin 11.5, both relatively stable. Platelets are normal and slightly increased from yesterday at 159. Glucose 187 and creatinine 0.64. Coags normal. Chest x-ray unremarkable. Patient has no further bleeding, cough, dyspnea, chest pain, or any other issues. He was given nosebleed precautions. Follow-up as an outpatient. Continue Keflex and return for any new or worsening issues. Treatment Plan: As above Disposition: Discharge Impression: 1. Epistaxis 2. Leukopenia 3. Anemia This note was generated with [employer] dictation software. It may contain incorrect words, spelling, and punctuation that were not noted in review of the chart prior to signing ED Disposition - Plan for ED Patient: Chief Complaint: Cough Referrals: Lui Sellers MD [Primary Care Provider] -
[2018-04-03 08:26] LABS: Absolute Lymphocyte Count 0.09 X10^3/ul (0.83-4.51); Absolute Neutrophil Count 1.5 X10^3/uL (2.0-7.7); Basophil# 0.06 X10^3/uL; Basophil% 3.4 % (0-1); Eosinophil# 0.03 X10^3/uL; Eosinophils% 1.7 % (0-5); Hematocrit 33.7 % (40-54); Hemoglobin 11.5 g/dl (13.0-16.5); Lymphocyte # 0.09 X10^3/ul (4.0); Lymphocyte % 5.1 % (19-41); Mean Corp Hgb Conc 34.1 g/gl (32-36); Mean Corpuscular Hgb 30.3 pg (27.0-32.0); Mean Corpuscular Volume 88.9 fL (80-94); Mean Platelet Vol. 8.8 fl (6.2-12.0); Monocyte# 0.05 X10^3/uL; Monocyte% 2.9 % (0-10); Neutrophil # 1.47 X10^3/uL (2.7-7.7); Platelet Count 159 K/mm3 (150-450); RBC Distribution Width CV 13.7 % (11.6-14.6); RBC Distribution Width SD 42.5 fl (35.1-43.9); Red Blood Count 3.79 M/mm3 (4.6-6.2); White Blood Count 1.8 K/mm3 (4.4-11.0)
[2018-04-03 08:27] LABS: Differential Indicated SCAN CRITERIA MET; POSITIVE COUNT YES; POSITIVE DIFFERENTIAL YES; POSITIVE MORPHOLOGY YES
[2018-04-03 08:30] LABS: International Normalized Ratio 1.1; Prothrombin Time (Protime)PT. 14.2 SECONDS (11.7-14.9)
[2018-04-03 08:31] LABS: Partial Thromboplast Time 35.7 Seconds (24.1-36.2)
--- NOTE | 2018-04-03 08:40 | RAD_ITS ---
STUDY: X-RAY CHEST REASON FOR EXAM: Male, 83 years old. Cough and hemoptysis. History of esophageal cancer. TECHNIQUE: PA and lateral views of the chest. COMPARISON: 03/11/2018. FINDINGS: The right-sided Port-A-Cath is in stable position with the tip in the distal superior vena cava. There is hyperinflation of the lungs consistent with chronic obstructive lung disease (COPD). The previously noted left apical pneumothorax has resolved. The infiltrate/atelectasis in the right midlung zone has resolved. Vague nodular densities seen in the right lung base probably due to nipple shadow. There is no demonstrated pleural abnormality. Sternal cerclage wires and vascular clips are present from a prior sternotomy and coronary artery bypass graft procedure (CABG). Normal mediastinum and marlin. Normal visualized pulmonary arteries. There is atherosclerotic calcification of the aortic arch with tortuosity. There are degenerative changes of the visualized thoracic spine. Normal visualized ribs, clavicles, and shoulders. There is no demonstrated abnormality of the visualized soft tissue structures of the upper abdomen. RAD/Chest PA and Lateral IMPRESSION: Resolved right pneumothorax. No new infiltrate is seen. Electronically Signed: Marino Uriostegui MD at 9:05 EST Tel , Service support ,
[2018-04-03 08:43] LABS: Differential Comment SCANNED
[2018-04-03 08:46] LABS: Anion Gap 12 (5-15); BUN 14 mg/dL (7-18); BUN/Creat Ratio 21.9 RATIO (10-20); Calcium,Total 8.6 mg/dL (8.5-10.1); Chloride 103 mmol/L (98-107); Creatinine, Serum 0.64 mg/dL (0.70-1.30); EST Glomerular Filtration Rate 128 mL/min (>60); Est Glom Filt Rate - Afr Amer 154 mL/min (>60); Estimated Creatinine Clearance 65.05 ml/min; Glucose 187 mg/dL (74-106); Potassium 3.8 mmol/L (3.5-5.1); Sodium Level 138 mmol/L (136-145)
--- NOTE | 2018-04-03 09:27 | ED.DEP ---
ED Disposition - Plan for ED Patient: Chief Complaint: Cough Instructions: ED Nosebleed Referrals: Lui Sellers MD [Primary Care Provider] -
[2018-04-03 10:09] VITALS: BP 148/94; PULSE 92; RESP 14; O2SAT 97
[2018-04-05 10:56] LABS: Pathologist Review Reviewed
== END 2018-04-03 10:17 | disposition home or self-care (01) ==
LOC: ED 08:02
PROVIDERS: Emergency Provider Emergency Medicine; Family Provider Family Medicine; PCP Family Medicine
DX: R04.0 Epistaxis (principal); D72.819 Decreased white blood cell count, unspecified; D64.9 Anemia, unspecified; Z85.01 Personal history of malignant neoplasm of esophagus; Z79.02 Long term (current) use of antithrombotics/antiplatelets; Z79.82 Long term (current) use of aspirin; E11.9 Type 2 diabetes mellitus without complications; I10 Essential (primary) hypertension; E78.00 Pure hypercholesterolemia, unspecified; I25.2 Old myocardial infarction; Z79.1 Long term (current) use of non-steroidal anti-inflammatories (NSAID); Z93.1 Gastrostomy status
CPT/HCPCS: 36591; 71046; 80048; 85025; 85610; 85730; 99282; A4216

== ENCOUNTER 2018-04-16 15:26 | Outpatient (RCR) | payer MEDICARE, OTHER, SELFPAY ==
[2018-02-25 13:08] VITALS: BMI 24.1
[2018-04-08 13:39] VITALS: BMI 22.9
== END 2018-04-16 23:59 | disposition home or self-care (01) ==
LOC: NS 15:26
PROVIDERS: Family Provider Family Medicine; PCP Family Medicine; Referring Provider Internal Medicine Hematology & Oncology; Visit Provider Internal Medicine Hematology & Oncology
DX: C15.9 Malignant neoplasm of esophagus, unspecified (principal); R63.4 Abnormal weight loss; Z71.3 Dietary counseling and surveillance
CPT/HCPCS: 97803

== ENCOUNTER 2018-05-20 15:10 | Emergency (ER) | payer MEDICARE, OTHER, SELFPAY ==
[2018-02-25 13:08] VITALS: BMI 24.1
[2018-05-14 13:43] VITALS: BMI 21.3
[2018-05-20 15:11] VITALS: BP 100/66; PULSE 110; RESP 14; TEMP 36.4; O2SAT 97; BMI 20.9
--- NOTE | 2018-05-20 15:33 | ED.VISSUMM ---
- ER Visit Summary Date of Service: 05/20/18 Chief Complaint: Weakness, failure to thrive not using feeding tube. History of Present Illness: The patient is a 83 M who has history of esophageal cancer completed treatment April 23 was sent to the emergency department by his oncologist because of not using his feeding tube, aspirated on a pill/choked on a pill this morning, weight loss, generalized weakness and not doing well at home. He denies fever or chills. He does report a 5 pound weight loss over the past 3 weeks. He denies ocular, visual or auditory symptoms. He does report dry mouth and thirst. He denies cardiac respiratory sounds. He denies abdominal pain. States he has not had a bowel in several days. He is fluctuating. He states his urine output is decreased and urine is darker. He does report paresthesia in his feet secondary to diabetic neuropathy. He also has symptoms of claudication after walking for 15-20 minutes. He states he is never smoked. He states he is never had any alcoholic drinks. Physical Examination: Vital signs noted. He is tachycardic. Head is atraumatic normocephalic. Pupils are equal round reactive. Extraocular muscles are intact. TMs are pearly white with landmarks noted. Nares patent with no drainage. Posterior pharynx without erythema or exudate. Uvula is midline. Tongue and buccal mucosa are dry. There is no dysphonia or dysphasia. Trachea is midline. There is no stridor with auscultation of the neck. Heart is regular and rapid without murmur, gallop or rub. S1 and S2 are normal. Lungs are clear to auscultation with good movement of air bilaterally. Abdomen is scaphoid nontender bowel sounds present and diminished. Feeding tube in proper position. There is no evidence of infection around the ostomy site. Neuro exam is nonfocal. Test Results: Potassium is 2.7. BUN and creatinine are unremarkable. CBC is unremarkable. Emergency Department Course and Treatment: Consult to case management was placed. Blood work was obtained to determine if there is evidence of acute kidney injury. Since he is not tachypnic, hypoxic and has no abnormal auscultatory findings of the lungs chest x-ray was not obtained. Treatment Plan: Prescription for walker, prescription for potassium and repeat potassium in 5-7 days and outpatient home health care Disposition: Discharge to home and to stay with sister Impression: 1. Hypokalemia 2. Generalized weakness secondary to esophageal cancer This note was generated with [employer] dictation software. It may contain incorrect words, spelling, and punctuation that were not noted in review of the chart prior to signing ED Disposition - Plan for ED Patient: Disposition: Home or Assisted Living Chief Complaint: General Illness Instructions: ED Potassium Deficiency Prescriptions: Potassium Chl Soln 20 meq OTHER BID #[id number] [facility] [place] Referrals: Lui Sellers MD [Primary Care Provider] - 5-7 Days Additional Instructions: You will need your potassium level reassessed in 5-7 days.
[2018-05-20] MEDS: 0.9% Normal Saline 1,000 ML 1000 ML IV (15:35)
--- NOTE | 2018-05-20 15:37 | ED.DCSUM_ITS ---
- ER Visit Summary Date of Service: 05/20/18 Chief Complaint: Weakness, failure to thrive not using feeding tube. History of Present Illness: The patient is a 83 M who has history of esophageal cancer completed treatment April 23 was sent to the emergency department by his oncologist because of not using his feeding tube, aspirated on a pill/choked on a pill this morning, weight loss, generalized weakness and not doing well at home. He denies fever or chills. He does report a 5 pound weight loss over the past 3 weeks. He denies ocular, visual or auditory symptoms. He does report dry mouth and thirst. He denies cardiac respiratory sounds. He denies abdominal pain. States he has not had a bowel in several days. He is fluctuating. He states his urine output is decreased and urine is darker. He does report paresthesia in his feet secondary to diabetic neuropathy. He also has symptoms of claudication after walking for 15-20 minutes. He states he is never smoked. He states he is never had any alcoholic drinks. Physical Examination: Vital signs noted. He is tachycardic. Head is atraumatic normocephalic. Pupils are equal round reactive. Extraocular muscles are intact. TMs are pearly white with landmarks noted. Nares patent with no drainage. Posterior pharynx without erythema or exudate. Uvula is midline. Tongue and buccal mucosa are dry. There is no dysphonia or dysphasia. Trachea is midline. There is no stridor with auscultation of the neck. Heart is regular and rapid without murmur, gallop or rub. S1 and S2 are normal. Lungs are clear to auscultation with good movement of air bilaterally. Abdomen is scaphoid nontender bowel sounds present and diminished. Feeding tube in proper position. There is no evidence of infection around the ostomy site. Neuro exam is nonfocal. Test Results: Potassium is 2.7. BUN and creatinine are unremarkable. CBC is unremarkable. Emergency Department Course and Treatment: Consult to case management was placed. Blood work was obtained to determine if there is evidence of acute kidney injury. Since he is not tachypnic, hypoxic and has no abnormal auscultatory findings of the lungs chest x-ray was not obtained. Treatment Plan: Prescription for walker, prescription for potassium and repeat potassium in 5-7 days and outpatient home health care Disposition: Discharge to home and to stay with sister Impression: 1. Hypokalemia 2. Generalized weakness secondary to esophageal cancer This note was generated with [employer] dictation software. It may contain incorrect words, spelling, and punctuation that were not noted in review of the chart prior to signing ED Disposition - Plan for ED Patient: Disposition: Home or Assisted Living Chief Complaint: General Illness Instructions: ED Potassium Deficiency Prescriptions: Potassium Chl Soln 20 meq OTHER BID #[id number] [facility] [place]errals: Lui Sellers MD [Primary Care Provider] - 5-7 Days Additional Instructions: You will need your potassium level reassessed in 5-7 days.
[2018-05-20 16:36] LABS: Absolute Lymphocyte Count 0.47 X10^3/ul (0.83-4.51); Absolute Neutrophil Count 3.1 X10^3/uL (2.0-7.7); Basophil# 0.03 X10^3/uL; Basophil% 0.7 % (0-1); Eosinophil# 0.01 X10^3/uL; Eosinophils% 0.2 % (0-5); Hematocrit 34.4 % (40-54); Hemoglobin 11.8 g/dl (13.0-16.5); Lymphocyte # 0.47 X10^3/ul (4.0); Lymphocyte % 11.5 % (19-41); Mean Corp Hgb Conc 34.3 g/gl (32-36); Mean Corpuscular Hgb 31.7 pg (27.0-32.0); Mean Corpuscular Volume 92.5 fL (80-94); Mean Platelet Vol. 8.6 fl (6.2-12.0); Monocyte# 0.47 X10^3/uL; Monocyte% 11.5 % (0-10); Neutrophil # 3.08 X10^3/uL (2.7-7.7); Neutrophil % 75.9 % (47-70); Platelet Count 202 K/mm3 (150-450); RBC Distribution Width CV 16.9 % (11.6-14.6); RBC Distribution Width SD 55.4 fl (35.1-43.9); Red Blood Count 3.72 M/mm3 (4.6-6.2); White Blood Count 4.1 K/mm3 (4.4-11.0)
[2018-05-20 16:37] LABS: Differential Indicated SCAN CRITERIA MET; POSITIVE COUNT NO; POSITIVE DIFFERENTIAL YES; POSITIVE MORPHOLOGY NO
[2018-05-20 16:45] LABS: Anion Gap 10 (5-15); BUN 12 mg/dL (7-18); BUN/Creat Ratio 13.6 RATIO (10-20); Chloride 100 mmol/L (98-107); Creatinine, Serum 0.88 mg/dL (0.70-1.30); EST Glomerular Filtration Rate 88 mL/min (>60); Est Glom Filt Rate - Afr Amer 107 mL/min (>60); Estimated Creatinine Clearance 67.28 ml/min; Glucose 176 mg/dL (74-106); Potassium 2.7 mmol/L (3.5-5.1); Sodium Level 138 mmol/L (136-145)
[2018-05-20 16:57] LABS: Differential Comment SCANNNED
--- NOTE | 2018-05-20 17:30 | CM.ED ---
SOCIAL WORK ASSESSMENT REFERRAL DATE:05/20/18 DATE OF ASSESSMENT:05/20/18 INFORMANT: DR. ALAS REASON FOR CONSULT: D/C PLANNING INFORMATION OBTAINED FROM: PT, PT'S SISTER-JUSTICE LUTHER ([phone]) AND NIECE. LIVING ARRANGEMENTS: PT LIVES HOME ALONE IN A SINGLE STORY APARTMENT WITH A LOFT. EMPLOYMENT/FINANCIAL: PT STATES HAS ALL FINANCIAL NEEDS MET. SUPPORTS: PT HAS GOOD SUPPORT FROM FAMILY. SOCIAL/FAMILY STRESSORS: FAMILY REPORTS PT HAS BEEN DECLINING. PT WITH WEAKNESS, NON COMPLIANCE WITH TUBE FEEDS, 5 LB WEIGHT LOSS OVER THE LAST 3 WEEKS. FAMILY CONCERNED WITH PT'S HOME CONDITIONS PT IS A HOARDER. FAMILY TO ASSIST PT WITH CLEANING UP THE HOME TO MAKE IT SAFE FOR AMBULATION. FAMILY STATES HOME IS NOT DIRTY AND REPORTS PT HAS A LOT OF STUFF. SISTER STATES PT HAS 26 BOOK CASES THAT BLOCK CERTAIN WALK WAYS. MENTAL HEALTH HX: PT ADMITS TO HX OF DEPRESSION AND STATES IS NOT TREATED. PT DECLINES ANY TREATMENT NEEDS. SUBSTANCE ABUSE HX: PT DENIES ANY HX OF SUBSTANCE ABUSE. INTERVENTIONS: REFERRAL TO [facility] FOR SN/PT/SW SCRIPT TO BE PROVIDED BY PHYSICIAN FOR FRONT WHEELED WALKER ASSESSMENT: PT IS A 83 Y/O MALE WHO PRESENTS TO THE ED WITH WEAKNESS AND NON COMPLIANCE WITH TUBE FEEDS. PT WITH HX OF ESOPHAGEAL CANCER. PT LIVES HOME ALONE AND IS NORMALLY INDEPENDENT WITH ADLS. FAMILY REPORTS PT HAS BEEN DECLINING AND HAS CONCERNS FOR PT IN THE HOME. DISCUSSED ALL D/C OPTIONS INCLUDING PRIVATE PAY TO SHELTER AND HOME HEALTH. PT AND SISTER IN AGREEMENT WITH PT GOING HOME WITH SISTER AND REFERRAL FOR [facility] HOME [facility] SERVICES. DISCUSSED DME NEEDS AND ALL IN AGREEMENT PT WOULD BENEFIT FROM A FRONT WHEELED WALKER. CASE CONFERENCED WITH DR. ALAS. REFERRAL FAXED AND CALLED TO [facility]. PT TO BE PROVIDED WITH SCRIPT FOR WALKER. NO OTHER QUESTIONS OR CONCERNS AT THIS TIME. PLAN: PT TO D/C HOME WITH SISTER, OCTOBER WITH REFERRAL FOR [facility] HOME HEALTH SERVICES.
[2018-05-20 17:48] VITALS: BP 161/89; PULSE 89; RESP 18; O2SAT 100
== END 2018-05-20 17:59 | disposition home or self-care (01) ==
PROVIDERS: Emergency Provider Emergency Medicine; Family Provider Family Medicine; PCP Family Medicine
DX: E87.6 Hypokalemia (principal); C15.9 Malignant neoplasm of esophagus, unspecified; E11.40 Type 2 diabetes mellitus with diabetic neuropathy, unspecified; F32.9 Major depressive disorder, single episode, unspecified; K59.00 Constipation, unspecified
CPT/HCPCS: 80048; 85025; 96360; 99283; J7030; A4216

== ENCOUNTER 2018-06-01 15:45 | Outpatient (RCR) | payer MEDICARE, OTHER, SELFPAY ==
[2018-02-25 13:08] VITALS: BMI 24.1
[2018-05-14 13:43] VITALS: BMI 21.3
[2018-05-24 11:21] VITALS: BMI 20.8
[2018-05-25 15:10] VITALS: BMI 20.8
--- NOTE | 2018-05-25 17:15 | HP.PCM_ITS ---
(1) Stage II pressure ulcer of right buttock Status: Acute Current Visit: Yes Code(s): L89.312 - Pressure ulcer of right buttock, stage 2 (2) Weight loss Status: Chronic Current Visit: Yes Code(s): R63.4 - Abnormal weight loss (3) Esophagus cancer Status: Acute Current Visit: No Qualifiers: Malignant neoplasm of esophagus location: lower third Qualified Code(s): C15.5 - Malignant neoplasm of lower third of esophagus Code(s): C15.9 - Malignant neoplasm of esophagus, unspecified (4) Type 2 diabetes mellitus without complication Status: Chronic Current Visit: Yes Code(s): E11.9 - Type 2 diabetes mellitus without complications History of Present Illness Date of Service: 05/25/18 Chief Complaint: Sore on right buttocks History of Wound: Patient was seen 05/18/18 at an urgent care for a sore on his buttocks. He was treated with keflex and referred to the wound healing center for further treatment. 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 He has lost over 40 lbs since February 2018 at his initial cancer diagnosis. Patient lives alone but has support of his sister and nieces and nephews. Past Medical History Past Medical History: Chronic Problems (Last Reviewed 05/24/18 @ 11:15 by Kendal Mack) Weight loss (Chronic) History of coronary artery bypass graft (Chronic ~07/1996) BROWNE to LAD and Diag 1, saphenous vein graft to CFX, saphenous vein graft to PDA, saphenous vein graft to RCA LVH (left ventricular hypertrophy) (Chronic) History of PTCA (Chronic ~12/2012) WILD to distal RCA History of left heart catheterization (Chronic ~07/1996) Mild tricuspid regurgitation (Chronic) Atherosclerosis of coronary artery of [place] heart without angina pectoris (Chronic) History of inferior wall myocardial infarction (Chronic) Type 2 diabetes mellitus without complication (Chronic) Hypertension (Chronic) Hyperlipidemia (Chronic) Surgical History: - - CABG and stent placement Allergies/Adverse Reactions: Allergies atorvastatin [From Lipitor] Adverse Reaction (Severe, Verified 05/24/18 11:16) Unknown spasm/ joint pain gabapentin [From Neurontin] Adverse Reaction (Severe, Verified 05/24/18 11:16) Other affected memory metoclopramide Adverse Reaction (Severe, Verified 05/24/18 11:16) Other double vision simvastatin Adverse Reaction (Severe, Verified 05/24/18 11:16) Unknown muscle weakness Home Medications: Ambulatory Orders Medication Instructions Recorded Aspirin [Aspirin, Baby] 81 mg PO DAILY@0800 07/07/14 Atenolol [Tenormin (beta josefina)] 50 mg PO DAILY 07/07/14 clopidogrel 75 mg tablet 75 mg PO DAILY #90 tab 04/21/17 metformin ER 500 mg 1,000 mg PO DAILY tab 12/10/17 tablet,extended release 24 hr nitroglycerin 0.4 mg sublingual 0.4 mg SUBLINGUAL Q5-15M PRN 12/10/17 tablet temazepam 15 mg capsule 30 mg PO QHS 12/10/17 Enalapril Maleate [Vasotec] 20 mg PO DAILY 02/18/18 Melatonin 10 mg PO QHS PRN 02/22/18 Dulaglutide [Trulicity] 1.5 mg SQ MO 03/04/18 Ranitidine [Zantac] 150 mg PO DAILY PRN 03/08/18 Potassium Chl Soln 20 meq OTHER BID #210 [facility] 05/20/18 Prochlorperazine Maleate 5 mg PO Q6H PRN 05/20/18 Magic Mouth Wash 15 ml PO Q6H PRN PRN 30 Days #340 05/24/18 ml Cephalexin [Keflex] 500 mg PO TID 05/25/18 Prochlorperazine 25 mg PO PRN PRN 05/25/18 Lives: Alone Smoking Status: Never smoker Review of Systems Constitutional: Reports: Malaise, Weakness, Weight Change Eyes: Denies: Pain, Vision Change HEENT: Denies: Difficulty Hearing Cardiovascular: Denies: Chest Pain Respiratory: Denies: Cough, Shortness of Breath Gastrointestinal: Reports: Constipation, Diarrhea Skin: Reports: Lesions - on right buttocks Neurological: Reports: Balance problems, Difficulty swallowing - He has a peg tube, he is able to swallow but sometimes it is painful.. Denies: Change in Speech, Slurred speech Endocrine: Reports: Change in Body Habitus - Physical Exam General: Alert, Cooperative HEENT: Atraumatic, PERRLA Oral: Moist Mucosa Lungs: Clear to auscultation, Normal air movement Cardiovascular: Regular rate, Regular Rhythm Abdomen: Soft, Non Tender, Non-Distended, - - has a peg tube in place Extremities: No edema, Capillary Refill Less than 3 Seconds Skin: Ulcer/ Wound - Small open area on right buttocks. Wound Measurements and Assessment - Nurse 1 - General Ulcer Measurement Start: 05/25/18 15:10 Freq: Status: Active Protocol: Activity Type Activity Date Activity User E-Sign Co-Sign Detail Recorded Client Recorded Date Recorded By Document 05/25/18 15:32 AN [id number] 05/25/18 15:44 AN 05/25/18 15:32 Wound Center Nurse 1 [Ulcer Assessment] #1 Right Buttock -Current Size (cm) - Length 0.5 -Current Size (cm) - Width 0.4 -Current Size (cm) - Depth 0.1 -Total Square Cm 0.20 -Date of Last Picture (Recall this 05/25/18 field) -Photo Taken Yes -Epithelialization None Present -Tunneling No -Undermining/Tunneling No -Circular Undermining No -Classification - Pressure Ulcer Stage 2 -Exudate Amt Small -Exudate Type Serous -Wound Margin Flat & Intact -Granulation Amt Large (67-100%) -Granulation Quality Red -Slough/Fibrin Yes -Necrosis Amt Small (1-33%) -Necrotic Tissue Type Adherent Slough -Texture (Tania-wound Skin Appearance) Assessed -Moisture (Tania-wound Skin Appearance Assessed ) -Color (Tania-wound Skin Appearance) Erythema -Temperature (Tania-wound Skin No Abnormality Appearance) (Pt Warm) -Tenderness on Palpation (Tania-wound No Skin Appearance) -Ulcer Cleansing Rinsed/ Irrigated with Saline -Foul Odor after Cleansing No -Anesthetic Used 5% Lidocaine Gel - Nurse 2 - General Ulcer CM Notes Start: 05/25/18 15:10 Freq: Status: Active Protocol: Activity Type Activity Date Activity User E-Sign Co-Sign Detail Recorded Client Recorded Date Recorded By Document 05/25/18 16:06 AN [id number] 05/25/18 16:09 AN 05/25/18 16:06 Wound Center Nurse 2 [Procedure/Treatment] right buttock -Time 16:06 -Correct Patient Yes -Correct Side, Site, Position Yes -Correct Procedure Yes -Procedure Performed Yes -Type of Procedure Debridement -Clinical Debridement Subcutaneous -Wound/Ulcer Outcome Not Healed -Ulcer Cleansing Rinsed/ Irrigated with Saline -Foul Odor after Cleansing No -Bioengineered Tissue No -Bleeding Controlled with Pressure -Offloading No -Treatment Response Procedure Tolerated Well #1 Right Buttock -Time 16:07 -Correct Patient Yes -Correct Side, Site, Position Yes -Correct Procedure Yes -Procedure Performed Yes -Type of Procedure Debridement -Clinical Debridement Subcutaneous -Post Debridement Size (cm) - Length 0.3 -Post Debridement Size (cm) - Width 0.3 -Post Debridement Size (cm) - Depth 0.1 -Total Square Cm 0.09 -Wound/Ulcer Outcome Not Healed -Ulcer Cleansing Rinsed/ Irrigated with Saline -Foul Odor after Cleansing No -Bioengineered Tissue No -Bleeding Controlled with Pressure -Offloading No -Treatment Response Procedure Tolerated Well [See Physician Procedure note for Specifics] Pain Scale: 0-10 Numeric [Pain] -Is Patient Pain Free? Yes Musculoskeletal: Cachexia, Muscle Wasting Neurological: Neuro grossly intact Psych/Mental Status: Normal Affect, Appropriate Debridement Note Post-Debridement Measurements/Treatment WC - Nurse 2 - General Ulcer CM Notes Start: 05/25/18 15:10 Freq: Status: Active Protocol: Activity Type Activity Date Activity User E-Sign Co-Sign Detail Recorded Client Recorded Date Recorded By Document 05/25/18 16:06 AN [id number] 05/25/18 16:09 AN 05/25/18 16:06 Wound Center Nurse 2 right buttock -Time 16:06 -Correct Patient Yes -Correct Side, Site, Position Yes -Correct Procedure Yes -Procedure Performed Yes -Type of Procedure Debridement -Clinical Debridement Subcutaneous -Wound/Ulcer Outcome Not Healed -Ulcer Cleansing Rinsed/ Irrigated with Saline -Foul Odor after Cleansing No -Bioengineered Tissue No -Bleeding Controlled with Pressure -Offloading No -Treatment Response Procedure Tolerated Well #1 Right Buttock -Time 16:07 -Correct Patient Yes -Correct Side, Site, Position Yes -Correct Procedure Yes -Procedure Performed Yes -Type of Procedure Debridement -Clinical Debridement Subcutaneous -Post Debridement Size (cm) - Length 0.3 -Post Debridement Size (cm) - Width 0.3 -Post Debridement Size (cm) - Depth 0.1 -Total Square Cm 0.09 -Wound/Ulcer Outcome Not Healed -Ulcer Cleansing Rinsed/ Irrigated with Saline -Foul Odor after Cleansing No -Bioengineered Tissue No -Bleeding Controlled with Pressure -Offloading No -Treatment Response Procedure Tolerated Well Pain Scale: 0-10 Numeric Is Patient Pain Free? Yes Wound debrided: Right buttocks Laterality: Right Wound Grade/Stage: Stage II Type of Debridement: Excisional debridement Anesthesia Used: 4% Lidocaine Solution Depth: Down to and including healthy tissue, in the subcutaneous layer Percentage of wound debrided: 100 Instrument Used: 3mm curette Tissue Removed: Subcutaneous tissue Severity: Limited To Skin Breakdown Amount of bleeding with debridement: Mild Bleeding Controlled with: Pressure Patient tolerated procedure well Assessment/Plan Active Problems (Last Reviewed 05/24/18 @ 11:15 by Kendal Mack) Weight loss (Chronic) Azotemia (Acute) Educational circumstance (Acute) Stage II pressure ulcer of right buttock (Acute) Type 2 diabetes mellitus without complication (Chronic) Assessment: 1. Stage II pressure ulcer of right buttock. 2. Weight loss. 3. Esophogeal cancer. 4. Type 2 diabetes mellitus without complication Plan: Patient was seen and evaluated at the wound healing center today. He was seen 05/18/18 at Urgent Care for a sore on his right buttocks. They started him on Keflex and referred him to the wound center. The wound was debrided today and the patient tolerated this without difficulty. He will continue the Keflex antibiotics for another 4 days. He will do collegen hydrogel to his right buttocks open area with a bordered mepilex dressing daily. He has home health coming to evaluate him tomorrow in his home. He has had a significant weight loss since February 2018 and his esophogeal cancer diagonsis. He is not compliant with taking his 6 boxes of formula daily. He states the most he ever has gotten is 5 boxes. He has a hard time using his PEG tube and does not like anyone to help him. He is a poor historian. He has support from his sister and his niece and nephews. Discussed proper nutrition along with making sure to get enough protein. He has seen a plant operations coordinator in the past. With his home health evaluation, we will suggest evaluation for physical therapy and detention. Encouraged him to sit on a foam cushion (not a donut pillow). Encouraged him to change positions at least every hour while awake. Encouraged ambulation. Gave him some sample packets of Sincere to try and drink. Follow up in one week. Code Visit Office Visits / Consults: [id number] OV L4 Est - 25 modifier [id number]: [id number] [place] subq tissue 20 sq cm/<
[2018-06-01 15:42] VITALS: BP 128/77; PULSE 89; RESP 16; TEMP 36.2; BMI 20.8
--- NOTE | 2018-06-01 16:29 | PCM.WC.PN ---
(1) Stage II pressure ulcer of right buttock Status: Acute Current Visit: Yes Code(s): L89.312 - Pressure ulcer of right buttock, stage 2 (2) Weight loss Status: Chronic Current Visit: Yes Code(s): R63.4 - Abnormal weight loss (3) Esophagus cancer Status: Chronic Current Visit: No Qualifiers: Malignant neoplasm of esophagus location: lower third Qualified Code(s): C15.5 - Malignant neoplasm of lower third of esophagus Code(s): C15.9 - Malignant neoplasm of esophagus, unspecified (4) Type 2 diabetes mellitus without complication Status: Chronic Current Visit: Yes Code(s): E11.9 - Type 2 diabetes mellitus without complications Type of Wound Date of Service: 06/01/18 Chief Complaint: Sore on right buttocks History of Wound: Patient was seen 05/18/18 at an urgent care for a sore on his buttocks. He was treated with keflex and referred to the wound healing center for further treatment. 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 He has lost over 40 lbs since February 2018 at his initial cancer diagnosis. Patient lives alone but has support of his sister and nieces and nephews. Progress of Wound: The wound is healed. - Physical Exam Vital Signs Temp Pulse Resp BP 97.1 F L 89 16 128/77 H 06/01/18 15:42 06/01/18 15:42 06/01/18 15:42 06/01/18 15:42 General: Alert, Cooperative HEENT: Atraumatic Oral: Moist Mucosa Lungs: Normal air movement Cardiovascular: Regular rate Extremities: No edema, Capillary Refill Less than 3 Seconds Skin: Ulcer/ Wound - Right buttocks healed Wound Measurements and Assessment WC - Nurse 1 - General Ulcer Measurement Start: 05/25/18 15:10 Freq: Status: Active Protocol: Activity Type Activity Date Activity User E-Sign Co-Sign Detail Recorded Client Recorded Date Recorded By Document 06/01/18 15:42 DL [id number] 06/01/18 15:48 DL 06/01/18 15:42 Wound Center Nurse 1 [Ulcer Assessment] #1 Right Buttock -Current Size (cm) - Length 0 -Current Size (cm) - Width 0 -Current Size (cm) - Depth 0 -Total Square Cm 0 -Photo Taken Yes -Exudate Amt None Present -Wound Margin Flat & Intact -Granulation Amt Large (67-100%) -Granulation Quality [place] -Necrosis Amt None Present (0 %) -Structure Exposed N/A -Texture (Tania-wound Skin Appearance) Scarring -Moisture (Tania-wound Skin Appearance No Abnormality ) -Color (Tania-wound Skin Appearance) No Abnormality -Temperature (Tania-wound Skin No Abnormality Appearance) (Pt Warm) -Tenderness on Palpation (Tania-wound No Skin Appearance) -Ulcer Cleansing Rinsed/ Irrigated with Saline -Foul Odor after Cleansing No WC - Nurse 2 - General Ulcer CM Notes Start: 05/25/18 15:10 Freq: Status: Active Protocol: Activity Type Activity Date Activity User E-Sign Co-Sign Detail Recorded Client Recorded Date Recorded By Document 06/01/18 15:57 LON [id number] 06/01/18 15:58 06/01/18 15:57 Wound Center Nurse 2 [Procedure/Treatment] -Correct Patient No -Correct Side, Site, Position No -Correct Procedure No -Procedure Performed No -Post Debridement Size (cm) - Length 0 -Post Debridement Size (cm) - Width 0 -Post Debridement Size (cm) - Depth 0 -Total Square Cm 0 -Wound/Ulcer Outcome Healed- Epithelialized [See Physician Procedure note for Specifics] Pain Scale: 0-10 Numeric [Pain] -Is Patient Pain Free? Yes Musculoskeletal: No Tenderness to Palpation of Joints or Extremities Neurological: Neuro grossly intact Psych/Mental Status: Normal Affect, Appropriate Debridement Note Post-Debridement Measurements/Treatment - Nurse 2 - General Ulcer CM Notes Start: 05/25/18 15:10 Freq: Status: Active Protocol: Activity Type Activity Date Activity User E-Sign Co-Sign Detail Recorded Client Recorded Date Recorded By Document 05/25/18 16:06 AN [id number] 05/25/18 16:09 AN Document 06/01/18 15:57 [id number] 06/01/18 15:58 05/25/18 06/01/18 16:06 15:57 Wound Center Nurse 2 right buttock -Time 16:06 -Correct Patient Yes -Correct Side, Site, Position Yes -Correct Procedure Yes -Procedure Performed Yes -Type of Procedure Debridement -Clinical Debridement Subcutaneous -Wound/Ulcer Outcome Not Healed -Ulcer Cleansing Rinsed/ Irrigated with Saline -Foul Odor after Cleansing No -Bioengineered Tissue No -Bleeding Controlled with Pressure -Offloading No -Treatment Response Procedure Tolerated Well #1 Right Buttock -Time 16:07 -Correct Patient Yes No -Correct Side, Site, Position Yes No -Correct Procedure Yes No -Procedure Performed Yes No -Type of Procedure Debridement -Clinical Debridement Subcutaneous -Post Debridement Size (cm) - Length 0.3 0 -Post Debridement Size (cm) - Width 0.3 0 -Post Debridement Size (cm) - Depth 0.1 0 -Total Square Cm 0.09 0 -Wound/Ulcer Outcome Not Healed Healed- Epithelialized -Ulcer Cleansing Rinsed/ Irrigated with Saline -Foul Odor after Cleansing No -Bioengineered Tissue No -Bleeding Controlled with Pressure -Offloading No -Treatment Response Procedure Tolerated Well Pain Scale: 0-10 Numeric Is Patient Pain Free? Yes Yes No debridement was completed today Assessment/Plan Active Problems (Last Reviewed 06/01/18 @ 11:26 by Kendal Mack) Weight loss (Chronic) Azotemia (Acute) Educational circumstance (Acute) Stage II pressure ulcer of right buttock (Acute) Type 2 diabetes mellitus without complication (Chronic) Assessment: 1. Stage II pressure ulcer of right buttock. 2. Weight loss. 3. Esophogeal cancer. 4. Type 2 diabetes mellitus without complication Plan: Patient was seen and evaluated at the wound healing center today. He was seen 05/18/18 at Urgent Care for a sore on his right buttocks. They started him on Keflex and referred him to the wound center. The wound was debrided today and the patient tolerated this without difficulty. He will completed the Keflex antibiotics several days ago. We will stop the collegen hydrogel to his right buttocks since he is healed. He did not qualify for home health. He has had a significant weight loss since February 2018 and his esophogeal cancer diagonsis. He is not compliant with taking his 6 boxes of formula daily (he is averaging 3 boxes per day). He states that his appetite is improving. He has a hard time using his PEG tube and does not like anyone to help him. He has support from his sister and his niece and nephews. Discussed proper nutrition along with making sure to get enough protein. Encouraged him to sit on a foam cushion (not a donut pillow). Encouraged him to change positions at least every hour while awake. Encouraged ambulation. He states he is doing better than he was last week. We will discharge him from the wound healing center today. Code Visit Office Visits / Consults: [id number] OV L3 Est
--- NOTE | 2018-06-01 16:35 | PN.PCM_ITS ---
(1) Stage II pressure ulcer of right buttock Status: Acute Current Visit: Yes Code(s): L89.312 - Pressure ulcer of right buttock, stage 2 (2) Weight loss Status: Chronic Current Visit: Yes Code(s): R63.4 - Abnormal weight loss (3) Esophagus cancer Status: Chronic Current Visit: No Qualifiers: Malignant neoplasm of esophagus location: lower third Qualified Code(s): C15.5 - Malignant neoplasm of lower third of esophagus Code(s): C15.9 - Malignant neoplasm of esophagus, unspecified (4) Type 2 diabetes mellitus without complication Status: Chronic Current Visit: Yes Code(s): E11.9 - Type 2 diabetes mellitus without complications Type of Wound Date of Service: 06/01/18 Chief Complaint: Sore on right buttocks History of Wound: Patient was seen 05/18/18 at an urgent care for a sore on his buttocks. He was treated with keflex and referred to the wound healing center for further treatment. 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 He has lost over 40 lbs since February 2018 at his initial cancer diagnosis. Patient lives alone but has support of his sister and nieces and nephews. Progress of Wound: The wound is healed. - Physical Exam Vital Signs Temp Pulse Resp BP 97.1 F L 89 16 128/77 H 06/01/18 15:42 06/01/18 15:42 06/01/18 15:42 06/01/18 15:42 General: Alert, Cooperative HEENT: Atraumatic Oral: Moist Mucosa Lungs: Normal air movement Cardiovascular: Regular rate Extremities: No edema, Capillary Refill Less than 3 Seconds Skin: Ulcer/ Wound - Right buttocks healed Wound Measurements and Assessment WC - Nurse 1 - General Ulcer Measurement Start: 05/25/18 15:10 Freq: Status: Active Protocol: Activity Type Activity Date Activity User E-Sign Co-Sign Detail Recorded Client Recorded Date Recorded By Document 06/01/18 15:42 DL [id number] 06/01/18 15:48 DL 06/01/18 15:42 Wound Center Nurse 1 [Ulcer Assessment] #1 Right Buttock -Current Size (cm) - Length 0 -Current Size (cm) - Width 0 -Current Size (cm) - Depth 0 -Total Square Cm 0 -Photo Taken Yes -Exudate Amt None Present -Wound Margin Flat & Intact -Granulation Amt Large (67-100%) -Granulation Quality [place] -Necrosis Amt None Present (0 %) -Structure Exposed N/A -Texture (Tania-wound Skin Appearance) Scarring -Moisture (Tania-wound Skin Appearance No Abnormality ) -Color (Tania-wound Skin Appearance) No Abnormality -Temperature (Tania-wound Skin No Abnormality Appearance) (Pt Warm) -Tenderness on Palpation (Tania-wound No Skin Appearance) -Ulcer Cleansing Rinsed/ Irrigated with Saline -Foul Odor after Cleansing No WC - Nurse 2 - General Ulcer CM Notes Start: 05/25/18 15:10 Freq: Status: Active Protocol: Activity Type Activity Date Activity User E-Sign Co-Sign Detail Recorded Client Recorded Date Recorded By Document 06/01/18 15:57 LON [id number] 06/01/18 15:58 06/01/18 15:57 Wound Center Nurse 2 [Procedure/Treatment] -Correct Patient No -Correct Side, Site, Position No -Correct Procedure No -Procedure Performed No -Post Debridement Size (cm) - Length 0 -Post Debridement Size (cm) - Width 0 -Post Debridement Size (cm) - Depth 0 -Total Square Cm 0 -Wound/Ulcer Outcome Healed- Epithelialized [See Physician Procedure note for Specifics] Pain Scale: 0-10 Numeric [Pain] -Is Patient Pain Free? Yes Musculoskeletal: No Tenderness to Palpation of Joints or Extremities Neurological: Neuro grossly intact Psych/Mental Status: Normal Affect, Appropriate Debridement Note Post-Debridement Measurements/Treatment - Nurse 2 - General Ulcer CM Notes Start: 05/25/18 15:10 Freq: Status: Active Protocol: Activity Type Activity Date Activity User E-Sign Co-Sign Detail Recorded Client Recorded Date Recorded By Document 05/25/18 16:06 AN [id number] 05/25/18 16:09 AN Document 06/01/18 15:57 [id number] 06/01/18 15:58 05/25/18 06/01/18 16:06 15:57 Wound Center Nurse 2 right buttock -Time 16:06 -Correct Patient Yes -Correct Side, Site, Position Yes -Correct Procedure Yes -Procedure Performed Yes -Type of Procedure Debridement -Clinical Debridement Subcutaneous -Wound/Ulcer Outcome Not Healed -Ulcer Cleansing Rinsed/ Irrigated with Saline -Foul Odor after Cleansing No -Bioengineered Tissue No -Bleeding Controlled with Pressure -Offloading No -Treatment Response Procedure Tolerated Well #1 Right Buttock -Time 16:07 -Correct Patient Yes No -Correct Side, Site, Position Yes No -Correct Procedure Yes No -Procedure Performed Yes No -Type of Procedure Debridement -Clinical Debridement Subcutaneous -Post Debridement Size (cm) - Length 0.3 0 -Post Debridement Size (cm) - Width 0.3 0 -Post Debridement Size (cm) - Depth 0.1 0 -Total Square Cm 0.09 0 -Wound/Ulcer Outcome Not Healed Healed- Epithelialized -Ulcer Cleansing Rinsed/ Irrigated with Saline -Foul Odor after Cleansing No -Bioengineered Tissue No -Bleeding Controlled with Pressure -Offloading No -Treatment Response Procedure Tolerated Well Pain Scale: 0-10 Numeric Is Patient Pain Free? Yes Yes No debridement was completed today Assessment/Plan Active Problems (Last Reviewed 06/01/18 @ 11:26 by Kendal Mack) Weight loss (Chronic) Azotemia (Acute) Educational circumstance (Acute) Stage II pressure ulcer of right buttock (Acute) Type 2 diabetes mellitus without complication (Chronic) Assessment: 1. Stage II pressure ulcer of right buttock. 2. Weight loss. 3. Esophogeal cancer. 4. Type 2 diabetes mellitus without complication Plan: Patient was seen and evaluated at the wound healing center today. He was seen 05/18/18 at Urgent Care for a sore on his right buttocks. They started him on Keflex and referred him to the wound center. The wound was debrided today and the patient tolerated this without difficulty. He will completed the Keflex antibiotics several days ago. We will stop the collegen hydrogel to his right buttocks since he is healed. He did not qualify for home health. He has had a significant weight loss since February 2018 and his esophogeal cancer diagonsis. He is not compliant with taking his 6 boxes of formula daily (he is averaging 3 boxes per day). He states that his appetite is improving. He has a hard time using his PEG tube and does not like anyone to help him. He has support from his sister and his niece and nephews. Discussed proper nutrition along with making sure to get enough protein. Encouraged him to sit on a foam cushion (not a donut pillow). Encouraged him to change positions at least every hour while awake. Encouraged ambulation. He states he is doing better than he was last week. We will discharge him from the wound healing center today. Code Visit Office Visits / Consults: [id number] OV L3 Est
== END 2018-06-10 23:59 ==
LOC: WC 15:45
PROVIDERS: Family Provider Family Medicine; PCP Family Medicine; Visit Provider Nurse Practitioner Family
DX: E11.622 Type 2 diabetes mellitus with other skin ulcer (principal); L89.312 Pressure ulcer of right buttock, stage 2; C15.5 Malignant neoplasm of lower third of esophagus; Z95.1 Presence of aortocoronary bypass graft; E78.5 Hyperlipidemia, unspecified; I10 Essential (primary) hypertension; I25.10 Atherosclerotic heart disease of native coronary artery without angina pectoris; Z79.899 Other long term (current) drug therapy; Z79.82 Long term (current) use of aspirin; Z79.02 Long term (current) use of antithrombotics/antiplatelets; Z79.84 Long term (current) use of oral hypoglycemic drugs; R13.10 Dysphagia, unspecified
CPT/HCPCS: 11042; 36591; 80053; 85025; 96360; 96361; 97110; 97163; 99212; 99213; J7030; A4216; G0463

== ENCOUNTER → 2018-07-07 15:38 | Outpatient (CLI) | payer MEDICARE, OTHER, SELFPAY ==
[2018-02-25 13:08] VITALS: BMI 24.1
[2018-05-24 11:21] VITALS: BMI 20.8
--- NOTE | 2018-07-07 15:54 | CT_ITS ---
STUDY: CT ABDOMEN WITH CONTRAST REASON FOR EXAM: Male, 83 years old. Malignant neoplasm of esophagus RADIATION DOSAGE (If Supplied By Facility): CTDIvol = ( 11.65 ) mGy, DLP = ( 870.69 ) mGycm TECHNIQUE: Transaxial images were obtained post I.V. administration of Isovue 300 100 IV, and oral contrast. Sagittal and coronal images were reconstructed. Individualized dose optimization techniques were used for this CT. COMPARISON: Prior study of 04/02/2018 FINDINGS: There are fibrotic changes of the lower lobes, right lower lobe more severely affected than left. There has been interval resolution of right basilar infiltrate noted previously. There remains mild right basilar bronchiectasis. The heart size is within normal limits. Coronary arterial calcifications are present. There is no pericardial effusion. Normal liver. There are multiple gallstones. Normal spleen. The pancreas is atrophic. Normal bilateral adrenal glands. There are multiple right renal cysts. There is a complex lobular cyst of the right kidney containing minimal mural calcification measuring 5.1 x 4.4 cm. There are several left renal cysts measuring up to 2.5 cm. A PEG tube is present within the stomach. Normal small intestine. There are scattered colonic diverticuli with no evidence of associated diverticulitis. There is non-visualization of the appendix. There are densely calcified plaques of the abdominal aorta and common iliac arteries. Normal inferior vena cava. Normal retroperitoneum. Normal abdominal wall. Status post sternotomy changes are present. There are diffuse degenerative changes of the visualized thoracolumbar spine. CT/Abdomen WITH IV Contrast IMPRESSION: 1. Fibrotic changes of the lower lobes, right lower lobe more severely affected than left. There has been interval resolution of right basilar infiltrate noted on the prior study. There remains mild right basilar bronchiectasis. 2. Cholelithiasis. 3. Atrophic pancreas. 4. Bilateral renal cysts as detailed above. These appear stable in the interval. 5. A PEG tube is present within the stomach. 6. Scattered colonic diverticulosis with no evidence of associated diverticulitis. 7. Diffuse degenerative changes of the visualized thoracolumbar spine. 8. There is no evidence of free intra-abdominal or intrapelvic air, fluid, or inflammatory process. Electronically Signed: Filemon De Dios MD at 21:41 EST , Service support ,
--- NOTE | 2018-07-07 15:55 | CT_ITS ---
STUDY: CT CHEST WITH CONTRAST REASON FOR EXAM: Male, 83 years old. Malignant neoplasm of esophagus RADIATION DOSAGE (If Supplied By Facility): CTDIvol = ( 11.65 ) mGy, DLP = ( 870.69 ) mGycm TECHNIQUE: Transaxial imaging was performed following intravenous administration of Isovue 300 100 IV. Individualized dose optimization techniques were used for this CT. COMPARISON: Prior study of March 12, 2018 FINDINGS: There is bilateral lower lobe fibrosis. There is no demonstrated pleural abnormality. The heart size is within normal limits. There is no pericardial effusion. Coronary arterial calcifications are present. The esophagus is diffusely mildly patulous. There is posterior wall thickening of the distal esophagus. There is no evidence of hilar or mediastinal adenopathy. Normal enhanced pulmonary arteries. There are calcified plaques of the thoracic aorta. Status post sternotomy changes are noted. There is diffuse endplate spondylosis of the visualized thoracolumbar spine. There is no evidence of osseous metastatic disease. Abdominal findings are reported separately. CT/Chest WITH Contrast IMPRESSION: 1. The esophagus is diffusely mildly patulous. There is posterior wall thickening of the distal esophagus. 2. Bilateral lower lobe fibrosis. 3. There is no evidence of hilar or mediastinal adenopathy. 4. There are calcified plaques of the thoracic aorta. 5. Status post sternotomy. Diffuse endplate spondylosis of the visualized thoracolumbar spine. Electronically Signed: Filemon De Dios MD at 21:57 EST , Service support ,
== END ==
PROVIDERS: Family Provider Family Medicine; PCP Family Medicine; Referring Provider Internal Medicine Medical Oncology; Visit Provider Internal Medicine Medical Oncology
DX: C15.9 Malignant neoplasm of esophagus, unspecified (principal)
CPT/HCPCS: 71260; 74160; Q9967

== ENCOUNTER 2018-07-09 14:30 | Outpatient (RCR) | payer MEDICARE, OTHER, SELFPAY ==
[2018-02-25 13:08] VITALS: BMI 24.1
--- NOTE | 2018-06-09 14:40 | HP.PTEVAL ---
Patient's Visit Information ELKIN HOUSE is a 83 year old M referred to Physical Therapy by Lui Sellers MD with a diagnosis of WEAKNESS,MALIGANT NEOPPLASM, OF ESOPHAGUS. Date of Evaluation: 06/09/18 Physical Therapist: Ralph Elise PT, Cert MDT, OCS - Visit Plan Frequency: 2x /Week Duration: 4 Weeks Plan: GAIT TRAINING,BALANCE PROGRAM,NUSTEP ,ENDURANCE PROGRAM,GRADED STRENGTHENING LE - Subjective Findings: This 83 y/o male presents to physical therapy with weakness. Patient has had esophaogus of CA with chemo and radiation which stopped Apr 23 with treaments. But currently has became progressively weak. Patient becomes fatigued in legs with gait and affects ADL'S. Patient is able to do light cooking,dressing ,sponge bath,too weak to take shower. Patient reports falling out of bed and was too weak to get up on own. Patient c/ parathesia toe from DM. Patient has occasionally dizzines. Patient uses quad cane with gait. But ,ocassioanlly uses cane. Patient weakness impair QOL and function. SOCIAL: single ,lives alone. VOCATION: retired - Objective POSTURE: mild foward posture ,hips/knees flexed. PALAPTION: unremrakable. NEURO: intact. SKIN: patient did have decubi sacral healed. GAIT: ambulats with slow anand mild foward posture ,flexed hip/knees unsready with quad cane but carry's 50-% of the time. BALANCE: fair+. MMT: quads/hams 4-/5,hip flex /abd 3+/5 ,ankle 4/5. FLEXABLITY: mod has. STAIRS: ones step at time with rail - Balance Scores Functional Gait Assessment Score: 7 % Disability: 76.6700 CATSIB Score (Max score 120 seconds): 50 - Goals Goal 1:: Independant with HEP Goal Time Frame: 4-6 Weeks Goal 2:: Ambulated with cane community distance with improved gait pattern 80 % of the time. Goal Time Frame: 4-6 Weeks Goal 3:: Patinet to increase strength BLE y 4/5 quad/hams ,hip 4-/5 to improve gaot Goal Time Frame: 4-6 Weeks Goal 4:: Patient tyo improve functional gait assessment by 5-10 ponts to decrease risk of falls Goal Time Frame: 4-6 Weeks Goal 5:: Patient to improve Catsib score by 5-10points to improve balance Goal Time Frame: 4-6 Weeks Goal 6:: Patient to improve LFES score by 5-10 points to imptrove QOL Goal Time Frame: 4-6 Weeks - Rehabilitation Potential Physical Therapy Diagnosis: This patient developed weakness following CA and chemo in Apr 2018 thus has generalized weakness ,decrease gait,balance impairs function Rehabilitation Potential: Fair - Anticipated Interventions Patient/Client Instruction: Educate patient on: Condition, Plan of Care For the Purpose of:: To increase ROM, To improve muscle performance and motor function, To improve ability to perform ADL's, To increase tolerance to activity/condition/position, To improve performance and independence with ADL's, To improve ability of physical actions for home/community/work/leisure, To improve gait and locomotor functions, To increase flexibility/ROM, To improve endurance, To improve balance, To improve safety with gait, To improve ability to perform tasks related to life management Therapeutic Exercise to Include: Strength training, Endurance training, Balance training, Flexibilty training, Gait and locomotor training, Active ROM Comment: PRES QUAD/HAMS /HIP For the Purpose of:: To improve muscle performance and motor function, To improve ability to perform ADL's, To increase tolerance to activity/condition/position, To improve performance and independence with ADL's, To improve ability of physical actions for home/community/work/leisure, To improve gait and locomotor functions, To increase flexibility/ROM, To improve endurance, To improve balance, To improve ability to perform tasks related to life management Functional Training to Include: Functional work training, Gait training For the Purpose of:: To improve muscle performance and motor function, To increase tolerance to activity/condition/position, To improve ability of physical actions for home/community/work/leisure, To improve safety with gait Thank you for the opportunity to evaluate your patient. For Medicare and Medicare HMO plans, please review the plan of care and approve it. It will need to be FAXED BACK to us at [phone] for Medicare purposes. For Medicare only, by signing this I certify the plan of care. Please let me know if there are questions or concerns regarding this plan of care. Physician Signature: Date:
--- NOTE | 2018-08-18 10:41 | HP.PTDCSUM_ITS ---
HP - PT D/C Summary It has been my pleasure to treat ELKIN HOUSE under orders from Lui Sellers MD, for the diagnosis of WEAKNESS,MALIGANT NEOPPLASM, OF ESOPHAGUS for a total of 8 visit(s). Discharge Date: 07/09/18 Please see the following information for a summary of their discharge status. - Subjective Subjective: Patient has more progress with balance and strengh . Patient stated he is doing ex's at home. At this ppoint patient would like to start walking at [facility] and [facility] walking program.Patient also stated cleared from [place]. - Objective Objective/Function: POSTURE: mild foward posture. GAIT:normal reciprocal pattern slow anand no cane. MMT: quads/hams 4/5,hip flexion 4-/5 ,ankle 4/5. BALANCE: good- - Goals Goal 1:: Independant with HEP Goal Progress: Goal Met Goal 2:: Ambulated with cane community distance with improved gait pattern 80 % of the time. Goal Progress: Goal Met Goal 3:: Patinet to increase strength BLE y 4/5 quad/hams ,hip 4-/5 to improve gaot Goal Progress: Goal Met Goal 4:: Patient t0o improve functional gait assessment by 5-10 ponts to decrease risk of falls Goal Progress: Goal Met Goal 5:: Patient to improve Catsib score by 5-10points to improve balance Goal Progress: Goal Met Goal 6:: Patient to improve LFES score by 5-10 points to imptrove QOL Goal Progress: Goal Met - Plan Plan: D/C TO HEP - D/C Information Discharge Comments: HEP If there are questions or concerns regarding this patient's physical therapy, please feel free to call me at [phone]. Thank you for the referral of this patient. Sincerely, Ralph Elise, PT, Cert MDT, OCS
== END 2018-07-09 19:00 | disposition home or self-care (01) ==
LOC: PT 14:30
PROVIDERS: Family Provider Family Medicine; PCP Family Medicine; Referring Provider Family Medicine; Visit Provider Family Medicine
DX: C15.9 Malignant neoplasm of esophagus, unspecified (principal); R53.1 Weakness
CPT/HCPCS: 97110; 97163; 97530

== ENCOUNTER 2018-07-26 07:38 | Day surgery (SDC) | payer MEDICARE, OTHER, SELFPAY ==
[2018-02-25 13:08] VITALS: BMI 24.1
[2018-07-13 13:05] VITALS: BMI 20.7
[2018-07-26] VITALS (7 sets, daily range): BP systolic 103–148; BP diastolic 62–87; PULSE 68–84; RESP 16–22; TEMP 36.4–37.1; O2SAT 88–100; BMI 21.3
--- NOTE | 2018-07-26 | IMM_PTH ---
PATIENT: ELKIN HOUSE LOC: EN U#:[id number] AGE/SX: 83/M ROOM: RE07/26/[address]: Dr. Andre Mckeon MD : [id number] BED: DIS: 07/26/2018 SPEC #: [id number] RECD: 08/03/18 09:27 STATUS: SHANIQUE RENilam #: [id number] KRAIG: 07/26/18 00:[address]: Andre Mckeon DEPT: IMMUNOHISTOCHEMISTRY RECD BY: Vanessa Soriano ENTERED: 08/03/18 09:32 SP TYPE: IMMUNO OTHR DR: Dr. Liu Sellers MD Tissues: Esophageal mucous membrane Procedures: HER-2-DIRK (initial) PHYSICIAN & INSTITUTION [place] [id number] SPECIMEN INFORMATION: Tissue Source: Esophageal mass biopsy Clinical Info: Malignant neoplasm of esophagus Specimen Number: [id number] CPT code: 56107 METHODOLOGY: Deparaffinized sections of prefer/formalin-fixed tissue or PAP/DQ stained slides are incubated with monoclonal/polyclonal antibodies/oligonucleotide probes. Localization is made via biotin free immunoperoxidase method. Appropriate controls are performed and reacted as expected. Results on target cell population are indicated in the following table: RESULTS: ANTIBODY / CLONE RESULT Her-2neu (CB11) 0 (negative) These tests were developed and their performance characteristics determined by [facility]. They may not have been cleared or approved by the U.S. Food and Drug Administration. The FDA has determined that such clearance or approval is not necessary. INTERPRETATION: Esophageal mass, biopsy: Adenocarcinoma. ALISSON:dinh 08/03/18
[2018-07-26 08:41] LABS: Bedside Glucose 162 mg/dL (70-110)
--- NOTE | 2018-07-26 09:00 | EGD_PTH ---
PATIENT: ELKIN HOUSE LOC: EN U#:[id number] AGE/SX: 83/M ROOM: RE07/26/[address]: Dr. Andre Mckeon MD : [id number] BED: DIS: 07/26/2018 SPEC #: [id number] RECD: 07/26/18 11:02 STATUS: SHANIQUE DEION #: [id number] KRAIG: 07/26/18 09:[address]: Andre Mckeon DEPT: SURGICAL PATHOLOGY RECD BY: Alexander Cabral ENTERED: 07/26/18 12:06 SP TYPE: EGD BIOPSY OT DR: Dr. Lui Sellers MD Tissues: Esophageal mucous membrane Procedures: Surgery Specimen Level IV HEADER OPERATION: EGD ([facility] [place]) PRE-OP DIAGNOSIS: Malignant neoplasm of esophagus, abnormal CT TISSUE SUBMITTED: Esophageal mass MICROSCOPIC DIAGNOSIS Esophageal mass, biopsy: Adenocarcinoma. See comment. ALISSON:dinh 07/27/18 COMMENT The specimen consists of blood clot containing the free floating fragments of tumor (adenocarcinoma). No intact mucosal tissue is identified. Clinical correlation and appropriate follow up are necessary. Please make reference to previous specimen ([id number]) esophageal mass, biopsy with diagnosis of invasive adenocarcinoma. Case has been reviewed in consultation with Dr. Galloway who concurs with the above diagnosis. IDC:AM MICROSCOPIC DESCRIPTION Slides are reviewed. GROSS DESCRIPTION Received in fixative is one container labeled with the patient's name and designated esophageal mass. The specimen consists of a piece of congested and hemorrhagic soft tissue measuring 1.5 x 0.7 x 0.4 cm. The specimen is bisected and submitted entirely in one cassette. The specimen is friable. / ALISSON:dinh 07/26/18 TC:0 CPT: 58438 ADDENDUM ADDENDUM ADDENDUM ADDENDUM ADDENDUM ADDENDUM ADDENDUM 09/21/2018 09:01 ADDENDUM 09/21/2018 09:01 ADDENDUM 09/21/2018 09:01 ADDENDUM 09/21/2018 09:01 ADDENDUM 09/21/2018 09:01 PD-L1 (KEYTRUDA) [facility] INTER[facility]: Expression Combined Positive Score: 10 Please see complete report in e-chart or EMR for complete details
--- NOTE | 2018-07-26 09:17 | OP.ENDO_ITS ---
07/26/2018 Lui Sellers [address] [place] [address] Re : Upper GI endoscopy procedure for Ad Mayfield Dear Dr. Sellers This procedure was performed on Thursday, July 26, 2018. My impressions and recommendations are as follows: Impressions : - Partially obstructing, malignant esophageal tumor was found in the lower third of the esophagus. Biopsied. - Normal stomach. - Normal examined duodenum. No specimens collected. Recommendations : - Discharge patient to home. - Resume previous diet. - Continue present medications. - Await pathology results. - Return to referring physician in 1 week. My findings are described in the full procedure note, which is enclosed. If I can be of further assistance, please feel free to contact me at Doctor phone number(s): , Fax: [phone], Work: . Sincerely, MD Andre Klein MD 07/26/2018 9:16:42 AM This report has been signed electronically.
== END 2018-07-26 10:17 | disposition home or self-care (01) ==
LOC: EN 07:40 → AC 08:07
PROVIDERS: Family Provider Family Medicine; PCP Family Medicine; Referring Provider Surgery; Visit Provider Surgery
PROC: 0DJ08ZZ Inspection of Upper Intestinal Tract, Via Natural or Artificial Opening Endoscopic (ICD-10-PCS; CPT 43235; principal; 2018-07-26 08:55)
DX: C15.5 Malignant neoplasm of lower third of esophagus (principal); R93.89 Abnormal findings on diagnostic imaging of other specified body structures; I25.10 Atherosclerotic heart disease of native coronary artery without angina pectoris; E11.9 Type 2 diabetes mellitus without complications; I10 Essential (primary) hypertension; E78.5 Hyperlipidemia, unspecified; I25.2 Old myocardial infarction; Z95.5 Presence of coronary angioplasty implant and graft; Z87.891 Personal history of nicotine dependence; Z79.82 Long term (current) use of aspirin
CPT/HCPCS: 43239; 82962; 88305; 88342; J7120; A4216

== ENCOUNTER 2018-09-08 17:13 | Emergency (ER) | payer MEDICARE, OTHER, SELFPAY ==
[2018-02-25 13:08] VITALS: BMI 24.1
[2018-07-26 08:26] VITALS: BMI 21.3
[2018-09-08 17:14] VITALS: BP 126/71; PULSE 91; RESP 16; TEMP 36.7; O2SAT 95; BMI 21.1
--- NOTE | 2018-09-08 18:00 | RAD_ITS ---
STUDY: X-RAY - ABDOMEN/PELVIS REASON FOR EXAM: Male, 83 years old. Rectal pain TECHNIQUE: Single AP view of the abdomen / pelvis. COMPARISON: None. FINDINGS: Fibrotic lung bases. Tubing projects over the abdomen. Circular density projects over T12 region/epigastrium. This may represent the balloon from a PEG tube. Clinical correlation required. There is an unremarkable bowel gas pattern. Increased stool. The visualized liver, spleen and kidneys are grossly normal in size and morphology. Normal soft tissue structures. Normal visualized osseous structures. IMPRESSION: Probable peg tube as above. Increased stool otherwise Normal x-ray examination of the abdomen and pelvis. Electronically Signed: Daniel Mack MD at 18:32 EDT , Service support , RAD/Abdomen Single View
--- NOTE | 2018-09-08 20:23 | ED.DCSUM_ITS ---
- ER Visit Summary Date of Service: 09/08/18 Chief Complaint: Constipation History of Present Illness: The patient is a 83 M who states for the past 6 or 7 days he has not had a bowel movement. He states he also cannot urinate. He states he is able to push some urine out. He states that just before arrival here he had small amount of hard stool. He has a history of esophageal cancer. He has a PEG tube but he does not use it. He takes a daily Colace. He tells me he took one magnesium citrate a few hours before arrival here in the department. He notes some rectal pain due to his hemorrhoids. Physical Examination: Afebrile vital signs are stable Gen: Well-nourished well-developed Head: Normocephalic atraumatic Eyes: Perrl EOMI ENT: TMs clear no rhinorrhea moist mucous membranes Neck: Supple no lymphadenopathy no JVD nontender CVS: Regular rate rhythm no murmurs normal S1-S2 Respiratory: No distress clear to auscultation bilaterally chest nontender Abdomen: Soft nontender nondistended normal bowel sounds no masses PEG tube in place Rectal exam: There is hard firm stool in the rectal vault. No blood. Back: Nontender Extremity: Nontender no edema Skin: Normal color no rash Neuro: alert orientated ?3 CN II-XII intact normal strength sensation reflexes gait cerebellar Psych: Normal affect normal mood Test Results: Abdominal x-ray shows increased stool. Emergency Department Course and Treatment: Patient received an enema and had good results. I will write for magnesium citrate. He was able to empty his bladder while here in the department. Impression: 1. Constipation This note was generated with [employer] dictation software. It may contain incorrect words, spelling, and punctuation that were not noted in review of the chart prior to signing ED Disposition - Plan for ED Patient: Disposition: Home or Assisted Living Instructions: ED Constipation, ED Impaction Fecal Treated Prescriptions: Magnesium Citrate [Citrate Of Magnesia] 300 ml PO X1 PRN #3 bottle PRN Reason: Constipation Referrals: Lui Sellers MD [Primary Care Provider] - 3-5 Days
[2018-09-08 20:50] VITALS: PULSE 84; RESP 22; O2SAT 97
--- NOTE | 2018-09-08 20:51 | ED.RN ---
THIS NURSE REVIEWED D/C INSTRUCTIONS WITH PT AND VISITORS. PT VERBALIZED UNDERSTANDING OF INSTRUCTIONS. PT DENIES FURTHER NEEDS OR QUESTIONS AT THIS TIME. PT AMBULATES FROM ROOM ON OWN WITHOUT ASSISTANCE FROM STAFF
== END 2018-09-08 20:52 | disposition home or self-care (01) ==
PROVIDERS: Emergency Provider Emergency Medicine; Family Provider Family Medicine; PCP Family Medicine
DX: K59.00 Constipation, unspecified (principal); E11.9 Type 2 diabetes mellitus without complications; I10 Essential (primary) hypertension; I25.10 Atherosclerotic heart disease of native coronary artery without angina pectoris; I25.2 Old myocardial infarction; Z72.0 Tobacco use; Z95.5 Presence of coronary angioplasty implant and graft; Z85.01 Personal history of malignant neoplasm of esophagus; Z93.1 Gastrostomy status
CPT/HCPCS: 74018; 99284

== ENCOUNTER → 2018-10-05 12:21 | Outpatient (CLI) | payer MEDICARE, OTHER, SELFPAY ==
[2018-02-25 13:08] VITALS: BMI 24.1
[2018-10-05 10:20] VITALS: BMI 20.7
--- NOTE | 2018-10-05 13:01 | RAD_ITS ---
STUDY: X-RAY CHEST REASON FOR EXAM: Male, 83 years old. Short of breath, malignant neoplasm lower third of esophagus, aortocoronary bypass graft TECHNIQUE: Frontal and lateral views of the chest. COMPARISON: 04/03/2018. FINDINGS: Right Mediport catheter terminates in the lower SVC. The lungs are hyperexpanded. There are coarsened interstitial markings suggestive of mild chronic fibrosis. Infiltrate seen in the lower left lung. Small left pleural effusion. Sternal cerclage wires and vascular clips are present from a prior sternotomy and coronary artery bypass graft procedure (CABG). Normal mediastinum and marlin. Normal visualized pulmonary arteries. There is atherosclerotic calcification of the aortic arch with tortuosity. Normal visualized thoracic spine. Normal visualized ribs, clavicles, and shoulders. There is no demonstrated abnormality of the visualized soft tissue structures of the upper abdomen. RAD/Chest PA and Lateral IMPRESSION: COPD with fibrosis. Active infiltrate in the lower left lung. Electronically Signed: Fabien Ribeiro MD at 13:41 EDT , Service support ,
[2018-10-05 13:46] LABS: BNP,B-Type NATRIURETIC PEPTIDE 223.8 pg/mL (0-100)
== END ==
PROVIDERS: Family Provider Family Medicine; PCP Family Medicine; Referring Provider Internal Medicine Cardiovascular Disease; Visit Provider Internal Medicine Cardiovascular Disease
DX: R06.02 Shortness of breath (principal); C15.5 Malignant neoplasm of lower third of esophagus; Z95.1 Presence of aortocoronary bypass graft
CPT/HCPCS: 36415; 71046; 83880

== ENCOUNTER → 2018-10-20 13:44 | Outpatient (CLI) | payer MEDICARE, OTHER, SELFPAY ==
[2018-02-25 13:08] VITALS: BMI 24.1
[2018-10-06 12:56] VITALS: BMI 20.9
[2018-10-13 13:41] VITALS: BMI 20.5
--- NOTE | 2018-10-20 13:45 | ECHODONC_ITS ---
Reason For Study: CAD/ASHD Procedure This was a 2D Doppler, Color Flow transthoracic echocardiogram. Myocardial strain analysis was performed in this exam to aid in the assessment of cardiac function. The study was technically difficult. Limited Subcostal images due to Peg Tube. Exam performed in department. Left Ventricle Normal LV size. Left ventricular systolic function is normal. The estimated ejection fraction is 55 %. Stage 1 diastolic dysfunction. Posterior-Basal: Hypokinetic. Infero-Basal: Akinetic. Right Ventricle Normal RV size. Normal systolic function. Atria Normal left atrium. Mitral Valve Normal mitral valve. Tricuspid Valve Normal tricuspid valve. Aortic Valve Trisinus/trileaflet aortic valve. Pulmonic Valve Normal pulmonic valve. Mild (1+) pulmonic valve insufficiency. Great Vessels Normal aortic root. The pulmonary artery is normal size. Normal inferior vena cava. Pericardium/Pleural No pericardial effusion. MMode/2D Measurements & Calculations LVIDd: 4.2 cm IVSd: 1.7 cm RA A4 area: 16.0 cm2 LVIDs: 3.7 cm LVPWd: 0.98 cm RVDd: 3.0 cm FS: 11.1 % Time Measurements MV dec time: 0.22 sec Doppler Measurements & Calculations MV E max roberto: 33.0 cm/sec Lat Peak E' Roberto: 7.6 cm/sec MV V2 max: 83.0 cm/sec MV A max roberto: 74.1 cm/sec E/E' lat: 4.4 MV max P.8 mmHg MV E/A: 0.45 MV V2 mean: 34.9 cm/sec MV mean P.63 mmHg MV V2 VTI: 15.1 cm MV P1/2t max roberto: 35.9 cm/sec Ao V2 max: 68.9 cm/sec LV V1 max: 56.9 cm/sec MV P1/2t: 76.9 msec Ao max P.9 mmHg LV V1 max P.3 mmHg Ao V2 mean: 43.6 cm/sec LV V1 mean P.62 mmHg MV dec slope: 136.6 cm/sec2 Ao mean P.90 mmHg LV V1 mean: 36.7 cm/sec MVA(P1/2t): 2.9 cm2 Ao V2 VTI: 11.2 cm LV V1 VTI: 10.4 cm PA V2 max: 60.4 cm/sec PI end-d roberto: 91.7 cm/sec Interpretation Summary Normal LV size. Left ventricular systolic function is normal. The estimated ejection fraction is 55 %. Stage 1 diastolic dysfunction. The global longitudinal strain is mildly abnormal. The global longitudinal strain = -14.7% (abnormal). Ordering Physician: Liu Starks Referring Physician: MD Marlo Lui Performed By: Randolph Jones RCS
== END ==
PROVIDERS: Family Provider Family Medicine; PCP Family Medicine; Referring Provider Internal Medicine Cardiovascular Disease; Visit Provider Internal Medicine Cardiovascular Disease
DX: R06.02 Shortness of breath (principal); Z95.1 Presence of aortocoronary bypass graft; R07.9 Chest pain, unspecified; I25.810 Atherosclerosis of coronary artery bypass graft(s) without angina pectoris; I25.2 Old myocardial infarction; E78.5 Hyperlipidemia, unspecified
CPT/HCPCS: 0399T; 93306

== ENCOUNTER → 2018-10-27 | Outpatient (CLI) | payer MEDICARE, OTHER, SELFPAY ==
[2018-02-25 13:08] VITALS: BMI 24.1
[2018-10-27 11:20] VITALS: BMI 20.2
--- NOTE | 2018-10-27 12:11 | CT_ITS ---
STUDY: CTA CHEST REASON FOR EXAM: Male, 83 years old. Acute chest pain, history of esophageal cancer RADIATION DOSAGE (If Supplied By Facility): CTDIvol = ( 10.54 ) mGy, DLP = ( 416.66 ) mGycm TECHNIQUE: The examination was performed with the intravenous administration of 100cc IV Isovue 370. Post-processing of the angiographic images was performed, with multiplanar reformation and 3D reconstruction. Individualized dose optimization techniques were used for this CT. COMPARISON: Previous plain films FINDINGS: Normal enhancement of the main pulmonary artery and right and left pulmonary arteries. Normal enhancement of the bilateral peripheral pulmonary arteries. There is no demonstrated pulmonary embolism. There is atherosclerotic calcification of the aortic arch with tortuosity. There is no demonstrated aortic dissection. Sternal cerclage wires and vascular clips are present from a prior sternotomy and coronary artery bypass graft procedure (CABG). Scattered subcentimeter axillary and mediastinal lymph nodes. There is peribronchial thickening. The lungs are hyper expanded, with flattening of the hemidiaphragms. Diffuse interstitial fibrotic changes in both lung gray with nonspecific pleural thickening and lingular infiltrate. There is associated free-flowing left pleural effusion. There are degenerative changes of thoracic spine. Changes in the esophagus consistent with previous pull-through surgery. There is a hiatal hernia. Bony structures show degenerative change, there is a simple right renal cyst CT/CTA Chest W/WO Contrast IMPRESSION: No demonstrated PE, or thoracic aortic aneurysm or dissection Hyperexpanded lungs with chronic interstitial changes, nonspecific pleural thickening, lingular pneumonia and pleural effusion. Evidence of chronic bronchitis Degenerative bony changes Electronically Signed: Tanner Duron MD at 12:54 EDT , Service support ,
== END | disposition home or self-care (01) ==
LOC: CT 12:09
PROVIDERS: Family Provider Family Medicine; PCP Family Medicine; Referring Provider Internal Medicine Hematology & Oncology; Visit Provider Internal Medicine Hematology & Oncology
DX: R07.9 Chest pain, unspecified (principal); R06.00 Dyspnea, unspecified; C15.9 Malignant neoplasm of esophagus, unspecified
CPT/HCPCS: 36591; 71275; 80053; 83735; 84100; 84439; 84443; 85025; 96413; J7050; Q9967; A4216; J9271

== ENCOUNTER → 2019-02-25 15:44 | Outpatient (CLI) | payer MEDICARE, OTHER, SELFPAY ==
[2018-02-25 13:08] VITALS: BMI 24.1
[2019-02-09 13:40] VITALS: BMI 19.7
--- NOTE | 2019-02-25 15:47 | CT_ITS ---
STUDY: CT ABDOMEN WITH CONTRAST REASON FOR EXAM: Male, 84 years old. Esophageal carcinoma, status post immunotherapy, follow-up RADIATION DOSAGE (If Supplied By Facility): CTDIvol = ( 10.06 ) mGy, DLP = ( 690.97 ) mGycm TECHNIQUE: Transaxial images were obtained post I.V. administration of IV 100mL Isovue-300 100ml, and with oral contrast. Sagittal and coronal images were reconstructed. Individualized dose optimization techniques were used for this CT. COMPARISON: None. FINDINGS: Lung bases described on chest CT report. Normal liver. There are multiple gallstones. Normal spleen. There is diffuse atrophy of the pancreas. Normal bilateral adrenal glands. Simple bilateral renal cysts are stable. Mildly complex cyst of the right mid kidney with calcifications has slightly involuted. Gastrostomy tube extends to the gastric lumen. Normal small intestine. There are multiple colonic diverticula consistent with diverticulosis. There is non-visualization of the appendix. There is diffuse atherosclerotic calcification of the abdominal aorta with elongation and tortuosity, but without a demonstrated aneurysm. Normal inferior vena cava. Normal retroperitoneum. Normal abdominal wall. There are diffuse degenerative changes of the visualized lumbar spine. CT/Abdomen WITH IV Contrast IMPRESSION: 1. Since 07/07/2018, essentially stable exam. No intra-abdominal mass/metastasis. 2. Chronic changes, as above. Electronically Signed: Aristeo Lewis MD ([place]) at 16:21 EDT , Service support ,
--- NOTE | 2019-02-25 15:47 | CT_ITS ---
STUDY: CT CHEST WITH CONTRAST REASON FOR EXAM: Male, 84 years old. Esophageal carcinoma, status post immunotherapy completed 2 weeks ago for follow-up RADIATION DOSAGE (If Supplied By Facility): CTDIvol = ( 10.06 ) mGy, DLP = ( 690.97 ) mGycm TECHNIQUE: Transaxial imaging was performed following intravenous administration of IV Isovue 300 100ml. Individualized dose optimization techniques were used for this CT. COMPARISON: CTA chest of 10/27/2018, PET scan from 09/06/2018, CT chest from 07/07/2018 FINDINGS: Right chest port is in place with tip extending to the cavoatrial junction. Mild fibrotic changes of the lungs but no airspace consolidation. There is atelectasis in the left lung base. Left pleural effusion is stable since prior PET scan. Normal heart and pericardium. Circumferential wall thickening of the lower esophagus has increased in size since the prior study. Axial dimension of the lower esophagus measures 2.9 x 4.0 cm (previously measured 2.1 x 2.8 cm). There is a discrete rounded mass protruding into the lumen of the esophagus (image 90) which is deformed/crescentic. There is a enlarged lymph node lateral to the lower esophagus (posterior to the left pulmonary artery measuring 2.0 x 2.4 cm (not evident on prior chest CT of 07/07/2018 and PET scan). Normal enhanced pulmonary arteries. Normal aorta arch and descending thoracic aorta. There are multi-level degenerative changes of the thoracic spine. No lytic or sclerotic bone lesions. Upper abdomen described on abdomen CT report. CT/Chest WITH Contrast IMPRESSION: 1. Since 07/07/[address] (and 09/06/2018 PET scan), unfavorable change. Increased wall thickening/neoplasm lower esophagus with paraesophageal adenopathy Electronically Signed: Aristeo Lewis MD ([place]) at 16:17 EDT , Service support ,
== END ==
PROVIDERS: Family Provider Family Medicine; PCP Family Medicine; Referring Provider Internal Medicine Hematology & Oncology; Visit Provider Internal Medicine Hematology & Oncology
DX: C15.9 Malignant neoplasm of esophagus, unspecified (principal)
CPT/HCPCS: 71260; 74160; Q9967; A4216